=== PATIENT | female | born 1990 | race Caucasian/White ===

== ENCOUNTER 2016-11-13 08:54 | Emergency (ER) | payer OTHER ==
[~2016-11-13] VITALS: Ht 172.7 cm; Wt 100.0 kg
[~2016-11-13 08:54] MED LIST: ACET325T PO; ALBUAER3 INH; LEVO125T4 PO
[2016-11-13 08:56] VITALS: BP 177/120; PULSE 94; RESP 24; TEMP 97.4; O2SAT 99
[2016-11-13 09:57] VITALS: RESP 24; O2SAT 99
[2016-11-13] MEDS ORDERED: diphenhydrAMINE HCL 50 MG/ML VIAL IVP ONE (10:00)
[2016-11-13] MEDS ORDERED: SODIUM CHLORIDE 0.9% FLUSH 5 ML FLUSH IVF PRN (10:00)
[2016-11-13] MEDS ORDERED: HYDROmorphone HCL PF 1 MG/ML VIAL IVS ONE (10:00)
[2016-11-13] MEDS ORDERED: KETOROLAC TROMETHAMINE 30 MG/ML (IVP) VIAL IVP ONE (10:00)
[2016-11-13] MEDS ORDERED: PROCHLORPERAZINE INJ 10 MG/2 ML VIAL IVP ONE (10:00)
[2016-11-13 10:25] LABS: AUTOMATED NEUTROPHIL # 8.9 TH/MM3 (1.8-7.7); BASOPHIL % 0.4 % (0.0-2.0); EOSINOPHIL # 0.3 TH/MM3 (0-0.4); EOSINOPHIL % 2.5 % (0.0-4.0); HEMATOCRIT 44.4 % (35.0-46.0); HEMO FLAGS DIFF FINAL; LYMPH % 22.8 % (9.0-44.0); LYMPHOCYTE # 2.9 TH/MM3 (1.0-4.8); MEAN CELL VOLUME 79.7 FL (80.0-100.0); MEAN CORPUSCULAR HEMOGLOBIN 26.6 PG (27.0-34.0); MEAN CORPUSCULAR HGB CONC 33.4 % (32.0-36.0); MONO % 4.4 % (0.0-8.0); NEUT % 69.9 % (16.0-70.0); PLATELET COUNT 317 TH/MM3 (150-450); RED BLOOD COUNT 5.57 MIL/MM3 (4.00-5.30); RED CELL DISTRIBUTION WIDTH 15.5 % (11.6-17.2); WHITE BLOOD COUNT 12.7 TH/MM3 (4.0-11.0)
[2016-11-13 10:42] LABS: BICARBONATE 24.3 MEQ/L (21.0-32.0)
--- NOTE | 2016-11-13 10:50 | RADRPT ---
EXAM DATE/TIME: 11/13/2016 10:09 [place] COMPARISON: CT ABDOMEN & PELVIS W/O CONTRAST, June 10, 2015, 17:15. INDICATIONS : Flank pain. ORAL CONTRAST: No oral contrast ingested. RADIATION DOSE: 32.57 CTDIvol (mGy) MEDICAL HISTORY : Renal calculi. SURGICAL HISTORY : section. Appendectomy.Cholecystectomy. ENCOUNTER: Initial ACUITY: 1 day PAIN SCALE: 5/10 LOCATION: flank TECHNIQUE: Volumetric scanning of the abdomen and pelvis was performed. Using automated exposure control and ad justment of the mA and/or kV according to patient size, radiation dose was kept as low as reasonably achievable to obtain optimal diagnostic quality images. FINDINGS: Minimal bibasilar parenchymal changes are seen in the lung base cyst. The liver spleen and pancreas are unremarkable Right kidney: There are multiple small calcifications in the right kidney. There no calcification along expected c ourse of the right ureter. Left kidney: Multiple calcifications are seen in the left kidney all measuring less than 5 mm. There are no calci fication with the course of the left ureter. In the pelvis IUD is in place. No pelvic calcifications are identified. CONCLUSION: Multiple small nonobstructing bilateral renal stones. IUD in the uterus.. Rashard Powell MD FACR on November 13, 2016 at 10:47 Board Certified Radiologist. This report was verified electronically.
--- NOTE | 2016-11-13 11:40 | PD ---
HPI Chief Complaint: Complaint Time Seen by Provider: 09:48 Travel History International Travel<30 days: No Contact w/Intl Traveler<30days: No Traveled to known affect area: No History of Present Illness HPI Patient is a 25-year-old female with history of ureterolithiasis requiring lithotripsy and stent placement who presents emergency department with complaint of flank pain. Patient states that she was normal up until approximately 2 hours prior to arrival when she developed right sided flank pain that radiates to the right lower quadrant of the abdomen. Associated small -volume frequent urination. No hematuria or dysuria. This is similar to patient's previous episodes of ureterolithiasis. She has had a previous appendectomy. Notes endometriosis but no history of ovarian pathology. PFSH Past Medical History ADD: Yes Anemia: Yes Depression: Yes Cancer: No Cardiovascular Problems: No Diabetes: No Diminished Hearing: No Gastrointestinal Disorders: Yes (GALL STONES) Genitourinary: Yes (CHRONIC UTI'S) Hepatitis: No Hiatal Hernia: No Hypertension: No Kidney Stones: Yes Medical other: Yes (ANEMIA, RESTLESS LEG SYND.) Reproductive: Yes (ENDOMETRIOSIS) Respiratory: No Immunizations Current: Yes Migraines: Yes Thyroid Disease: Yes Influenza Vaccination: Yes ?: Not : 1 Para: 0 Dilation and Curettage (D&C): Yes Past Surgical History Abdominal Surgery: Yes (LAP TEE) Appendectomy: Yes Section: Yes Cholecystectomy: Yes Ear Surgery: Yes (PE TUBES) Genitourinary Surgery: Yes (ESWL, STONE RETRIEVAL) Gynecologic Surgery: Yes (FOR ENDOMETRIOSIS X 9) Pacemaker: No Tonsillectomy: Yes Other Surgery: Yes Social History Alcohol Use: Yes (COUPLE DRINKS PER MONTH) Tobacco Use: No Substance Use: No Allergies-Medications (Allergen,Severity, Reaction): Coded Allergies: Zofran (Unverified Allergy, Severe, Hives, 09/27/16) Keflex (Verified Allergy, Intermediate, RASH, 09/27/16) Morphine (Verified Adverse Reaction, Intermediate, REDNESS AT IVP SITE, ) Reported Meds & Prescriptions Reported Meds & Active Scripts Active Proair Hfa 8.5 GM Inh (Albuterol Sulfate) 90 Mcg/Act Aer 2 Puff INH Q6H PRN 108 mcg/actuation Reported Acetaminophen 325 Mg Tab 650 Mg PO Q4-6H PRN Levothyroxine (Levothyroxine Sodium) 125 Mcg Tab 125 Mcg PO DAILY Review of Systems Except as stated in HPI: all other systems reviewed are Neg Physical Exam Narrative GENERAL: Uncomfortable female in mild distress, having difficulty finding a comfortable position in bed SKIN: Warm and dry. HEAD: Normocephalic. EYES: No scleral icterus. No injection or drainage. ENT: Mucous membranes pink and moist. NECK: Supple CARDIOVASCULAR: Regular rate and rhythm. No murmur appreciated. RESPIRATORY: No accessory muscle use. Clear to auscultation. Breath sounds equal bilaterally. GASTROINTESTINAL: Abdomen soft, non-tender, nondistended. Right sided flank pain radiating to the right abdomen but not reproducible with palpation MUSCULOSKELETAL: Normal gait NEUROLOGICAL: Awake and alert. Normal speech. PSYCHIATRIC: Appropriate mood and affect; insight and judgment normal. Data Data Last Documented VS Vital Signs Date Time Temp Pulse Resp B/P Pulse Ox O2 Delivery O2 Flow Rate FiO2 11/13/16 09:57 24 99 Room Air 11/13/16 09:38 101 11/13/16 08:56 97.4 177/120 Orders Urinalysis - C+S If Indicated (11/13/16 09:32) Ed Urine Pregnancytest Poc (11/13/16 09:32) Iv Access Insert/Monitor (11/13/16 09:48) Ecg Monitoring (11/13/16 09:48) Oximetry (11/13/16 09:48) Sodium Chloride 0.9% Flush (Ns Flush) (11/13/16 10:00) Ketorolac Inj (Toradol Inj) (11/13/16 10:00) Hydromorphone Pf Inj (Dilaudid Pf Inj) (11/13/16 10:00) Prochlorperazine Inj (Compazine Inj) (11/13/16 10:00) Diphenhydramine Inj (Benadryl Inj) (11/13/16 10:00) Basic Metabolic Panel (Bmp) (11/13/16 09:57) Complete Blood Count With Diff (11/13/16 09:57) Ct Abd/Pel W/O Iv Contrast (11/13/16 09:57) Urine Culture (11/13/16 11:20) Labs Laboratory Tests Test 11/13/16 11/13/16 10:12 11:20 White Blood Count 12.7 TH/MM3 Red Blood Count 5.57 MIL/MM3 Hemoglobin 14.8 GM/DL Hematocrit 44.4 % Mean Corpuscular Volume 79.7 FL Mean Corpuscular Hemoglobin 26.6 PG Mean Corpuscular Hemoglobin 33.4 % Concent Red Cell Distribution Width 15.5 % Platelet Count 317 TH/MM3 Mean Platelet Volume 8.7 FL Neutrophils (%) (Auto) 69.9 % Lymphocytes (%) (Auto) 22.8 % Monocytes (%) (Auto) 4.4 % Eosinophils (%) (Auto) 2.5 % Basophils (%) (Auto) 0.4 % Neutrophils # (Auto) 8.9 TH/MM3 Lymphocytes # (Auto) 2.9 TH/MM3 Monocytes # (Auto) 0.6 TH/MM3 Eosinophils # (Auto) 0.3 TH/MM3 Basophils # (Auto) 0.0 TH/MM3 CBC Comment DIFF FINAL Differential Comment Sodium Level 137 MEQ/L Potassium Level 4.0 MEQ/L Chloride Level 105 MEQ/L Carbon Dioxide Level 24.3 MEQ/L Anion Gap 8 MEQ/L Blood Urea Nitrogen 14 MG/DL Creatinine 0.83 MG/DL Estimat Glomerular Filtration 82 ML/MIN Rate Random Glucose 84 MG/DL Calcium Level 8.9 MG/DL Urine Color YELLOW Urine Turbidity HAZY Urine pH 5.5 Urine Specific [place] 1.032 Urine Protein 30 mg/dL Urine Glucose (UA) NEG mg/dL Urine Ketones NEG mg/dL Urine Occult Blood TRACE Urine Nitrite NEG Urine Bilirubin NEG Urine Urobilinogen LESS THAN 2.0 MG/DL Urine Leukocyte Esterase SMALL Urine RBC 2 /hpf Urine WBC 3 /hpf Urine Squamous Epithelial 3 /hpf Cells Urine Bacteria RARE /hpf Urine Hyaline Casts 3 /lpf Urine Mucus MANY /lpf Microscopic Urinalysis Comment CATH-CULTURE IND MDM Medical Decision Making Medical Screen Exam Complete: Yes Emergency Medical Condition: Yes Medical Record Reviewed: Yes Differential Diagnosis 25-year-old female with history of ureterolithiasis requiring lithotripsy/stent placement here with 2 hours of right flank pain radiating to the right abdomen with urinary symptoms. Differential includes UTI, pyelonephritis, ureterolithiasis. Her abdominal examination itself is benign making hepatobiliary or peritoneal pathology unlikely. Narrative Course Knight placed on monitor, IV established and blood obtained. She was given Dilaudid, Toradol, Benadryl, Compazine. Urine test was negative. CBC , BMP notable for mild leukocytosis 12.7. CT abdomen and pelvis shows bilateral nonobstructing stones. Urinalysis showed unremarkable. Patient will be discharged home as she is feeling markedly improved. Possibly that she passed a stone. Diagnosis Primary Impression: Renal colic Referrals: Hai Daniel MD as needed Additional Instructions: Nausea, pain medications as needed. Follow-up with urology if symptoms persist and return to the ER for the warning signs discussed. Med/Other Pt SpecificInfo: Prescription(s) given Scripts Ondansetron Odt (Zofran Odt)8 Mg Tab8 Mg SL Q8H PRN (NAUSEA OR VOMITING) #6 TAB Ref 0 Prov:Chhaya Lucas MD 11/13/16 Hydrocodone-Acetaminophen ([place])5-325 mg Tab1-2 Tab PO Q6H PRN (PAIN) #15 TAB Ref 0 Prov:Chhaya Lucas MD 11/13/16 Disposition: 01 DISCHARGE HOME Condition: Stable Chhaya Lucas MD Nov 13, 2016 11:40
[2016-11-13 12:04] LABS: BACTERIA, URINE RARE /hpf; BLOOD, URINE TRACE (NEG); COMMENT (UR) CATH-CULTURE IND; CULTURE IF INDICATED CATH CULTURE IND; GLUCOSE,URINE NEG (NEG); HYALINE CAST, URINE 3 /lpf (RARE); KETONE, URINE NEG (NEG); MUCUS URINE MANY /lpf (OCC); NITRITE,URINE NEG (NEG); PH, URINE 5.5 (5.0-8.5); SQUAMOUS EPITHELIAL CELL URINE 3 /hpf (0-5); URINE COLOR YELLOW (YELLW/STRAW)
[2016-11-13] MEDS ORDERED: NORC5TAB PO (12:41)
[2016-11-13] MEDS ORDERED: ZOFR8TAB4 SL (12:41)
[2016-11-13] MEDS ORDERED: PROM25TA5 PO (13:05)
== END 2016-11-13 12:51 | disposition home or self-care (01) ==
LOC: NEPE 08:54
DX: N23 Unspecified renal colic (principal); Z87.442 Personal history of urinary calculi; E07.9 Disorder of thyroid, unspecified
CPT/HCPCS: 74176; 80048; 81001; 84703; 85025; 87086; 96374; 96375; 99284; J0780; J1170; J1200; J1885

== ENCOUNTER 2016-12-09 21:44 | Emergency (ER) | payer OTHER ==
[~2016-12-09] VITALS: Ht 172.7 cm; Wt 114.1 kg
[~2016-12-09 21:44] MED LIST changes: +NORC5TAB PO; +PROM25TA5 PO
[2016-12-09 21:53] VITALS: BP 187/132; PULSE 101; RESP 22; TEMP 97.9; O2SAT 96
[2016-12-09 22:13] LABS: BLOOD, URINE TRACE (NEG); GLUCOSE,URINE NEG (NEG); KETONE, URINE NEG (NEG); NITRITE,URINE NEG (NEG)
[2016-12-09 22:18] LABS: URINE COLOR YELLOW (YELLW/STRAW)
[2016-12-09 22:19] LABS: BACTERIA, URINE MANY /hpf; COMMENT (UR) CULTURE INDICATED; CULTURE IF INDICATED CULTURE INDICATED; RBC, URINE 0-3 /hpf (0-3); SQUAMOUS EPITHELIAL CELL URINE > 8 /hpf (0-5)
--- NOTE | 2016-12-09 22:44 | PD ---
HPI Chief Complaint: Flank/Kidney Pain Time Seen by Provider: 22:29 Travel History International Travel<30 days: No Contact w/Intl Traveler<30days: No Traveled to known affect area: No History of Present Illness HPI 25yo F with PMH of nephrolithiasis presents to the ED with c/o right flank pain radiating to right abdomen for 1.5 hours. States it feels like her kidney stones but she did not take anything for pain. States she feels nauseous but always nauseous when she is in pain. Denies any fever, chest pain, sob, vomiting, urinary complaints, vaginal bleeding or discharge. Pt was seen here for the same complaint on 11/13/16 and had urine culture that showed contamination as well as CTa/p that showed bilateral nonobstructing renal stones / PFSH Past Medical History ADD: Yes Anemia: Yes Depression: Yes Cancer: No Cardiovascular Problems: No Diabetes: No Diminished Hearing: No Gastrointestinal Disorders: Yes (GALL STONES) Genitourinary: Yes (CHRONIC UTI'S) Hepatitis: No Hiatal Hernia: No Hypertension: No Kidney Stones: Yes Medical other: Yes (ANEMIA, RESTLESS LEG SYND.) Reproductive: Yes (ENDOMETRIOSIS) Respiratory: No Immunizations Current: Yes Migraines: Yes Thyroid Disease: Yes Influenza Vaccination: Yes ?: Not LMP: 11/21/16 : 1 Para: 1 Ovarian Cysts: Yes Dilation and Curettage (D&C): Yes Past Surgical History Abdominal Surgery: Yes (LAP TEE) Appendectomy: Yes Section: Yes (2010) Cholecystectomy: Yes Ear Surgery: Yes (PE TUBES) Genitourinary Surgery: Yes (ESWL, STONE RETRIEVAL) Gynecologic Surgery: Yes (FOR ENDOMETRIOSIS X 9) Pacemaker: No Tonsillectomy: Yes Other Surgery: Yes Social History Alcohol Use: Yes (COUPLE DRINKS PER MONTH) Tobacco Use: No Substance Use: No Allergies-Medications (Allergen,Severity, Reaction): Coded Allergies: Zofran (Unverified Allergy, Severe, Hives, 12/09/16) Keflex (Verified Allergy, Intermediate, RASH, 12/09/16) Morphine (Verified Adverse Reaction, Intermediate, REDNESS AT IVP SITE, 12/09/16) Reported Meds & Prescriptions Reported Meds & Active Scripts Active Reported Levothyroxine (Levothyroxine Sodium) 125 Mcg Tab 125 Mcg PO DAILY Review of Systems Except as stated in HPI: all other systems reviewed are Neg Physical Exam Narrative GENERAL: 25yo F in mild distress. SKIN: Warm and dry. HEAD: Atraumatic. Normocephalic. CARDIOVASCULAR: Regular rate and rhythm. No murmur appreciated. RESPIRATORY: No accessory muscle use. Clear to auscultation. Breath sounds equal bilaterally. GASTROINTESTINAL: Abdomen soft, non-tender, nondistended. No rebound tenderness or guarding. Pt states there is no pain when I palpate. BACK: No CVA tenderness bilaterally. No midline thoracic or lumbar tenderness. MUSCULOSKELETAL: No obvious deformities. No clubbing. No cyanosis. No edema. NEUROLOGICAL: Awake and alert. No obvious cranial nerve deficits. Motor grossly within normal limits. Normal speech. PSYCHIATRIC: Appropriate mood and affect; insight and judgment normal. Data Data Last Documented VS Vital Signs Date Time Temp Pulse Resp B/P Pulse Ox O2 Delivery O2 Flow Rate FiO2 12/09/16 22:56 80 18 149/98 98 Room Air 12/09/16 21:53 97.9 Orders Urinalysis - C+S If Indicated (12/09/16 22:02) Ed Urine Pregnancytest Poc (12/09/16 22:02) Urine Culture (12/09/16 22:06) Complete Blood Count With Diff (12/09/16 22:34) Comprehensive Metabolic Panel (12/09/16 22:34) Ketorolac Inj (Toradol Inj) (12/09/16 22:45) Metoclopramide Inj (Reglan Inj) (12/09/16 22:45) Sodium Chlor 0.9% 1000 Ml Inj (Ns 1000 M (12/09/16 22:45) Ed Poc Ultrasound (12/09/16 ) Ed Poc Ultrasound (12/09/16 ) Hydromorphone Pf Inj (Dilaudid Pf Inj) (12/09/16 23:30) Labs Laboratory Tests Test 12/09/16 12/09/16 22:06 22:40 Urine Color YELLOW Urine Turbidity SLIGHT Urine pH 6.0 Urine Specific [place] GREATER THAN 1.035 Urine Protein 30 mg/dL Urine Glucose (UA) NEG mg/dL Urine Ketones NEG mg/dL Urine Occult Blood TRACE Urine Nitrite NEG Urine Bilirubin NEG Urine Leukocyte Esterase NEG Urine RBC 0-3 /hpf Urine WBC 3-5 /hpf Urine Squamous Epithelial > 8 /hpf Cells Urine Bacteria MANY /hpf Microscopic Urinalysis Comment CULTURE INDICATED White Blood Count 10.7 TH/MM3 Red Blood Count 4.89 MIL/MM3 Hemoglobin 13.2 GM/DL Hematocrit 38.9 % Mean Corpuscular Volume 79.5 FL Mean Corpuscular Hemoglobin 26.9 PG Mean Corpuscular Hemoglobin 33.9 % Concent Red Cell Distribution Width 14.5 % Platelet Count 312 TH/MM3 Mean Platelet Volume 8.3 FL Neutrophils (%) (Auto) 61.9 % Lymphocytes (%) (Auto) 30.4 % Monocytes (%) (Auto) 5.0 % Eosinophils (%) (Auto) 2.2 % Basophils (%) (Auto) 0.5 % Neutrophils # (Auto) 6.6 TH/MM3 Lymphocytes # (Auto) 3.3 TH/MM3 Monocytes # (Auto) 0.5 TH/MM3 Eosinophils # (Auto) 0.2 TH/MM3 Basophils # (Auto) 0.1 TH/MM3 CBC Comment DIFF FINAL Differential Comment Sodium Level 141 MEQ/L Potassium Level 3.4 MEQ/L Chloride Level 107 MEQ/L Carbon Dioxide Level 24.2 MEQ/L Anion Gap 10 MEQ/L Blood Urea Nitrogen 14 MG/DL Creatinine 0.82 MG/DL Estimat Glomerular Filtration 84 ML/MIN Rate Random Glucose 87 MG/DL Calcium Level 8.5 MG/DL Total Bilirubin 0.6 MG/DL Aspartate Amino Transf 14 U/L (AST/SGOT) Alanine Aminotransferase 24 U/L (ALT/SGPT) Alkaline Phosphatase 66 U/L Total Protein 7.4 GM/DL Albumin 3.5 GM/DL MDM Medical Decision Making Medical Screen Exam Complete: Yes Emergency Medical Condition: Yes Interpretation(s) Laboratory Tests Test 12/09/16 12/09/16 22:06 22:40 Urine Color YELLOW (YELLW/STRAW) Urine Turbidity SLIGHT (CLEAR) Urine pH 6.0 (5.0-8.5) Urine Specific [place] GREATER THAN 1.035 (1.002-1.035) Urine Protein 30 mg/dL (NEG-TRACE) Urine Glucose (UA) NEG mg/dL (NEG) Urine Ketones NEG mg/dL (NEG) Urine Occult Blood TRACE (NEG) Urine Nitrite NEG (NEG) Urine Bilirubin NEG (NEG) Urine Leukocyte Esterase NEG (NEG) Urine RBC 0-3 /hpf (0-3) Urine WBC 3-5 /hpf (0-5) Urine Squamous Epithelial > 8 /hpf (0-5) Cells Urine Bacteria MANY /hpf (NONE) Microscopic Urinalysis Comment CULTURE INDICATED White Blood Count 10.7 TH/MM3 (4.0-11.0) Red Blood Count 4.89 MIL/MM3 (4.00-5.30) Hemoglobin 13.2 GM/DL (11.6-15.3) Hematocrit 38.9 % (35.0-46.0) Mean Corpuscular Volume 79.5 FL (80.0-100.0) Mean Corpuscular Hemoglobin 26.9 PG (27.0-34.0) Mean Corpuscular Hemoglobin 33.9 % Concent (32.0-36.0) Red Cell Distribution Width 14.5 % (11.6-17.2) Platelet Count 312 TH/MM3 (150-450) Mean Platelet Volume 8.3 FL (7.0-11.0) Neutrophils (%) (Auto) 61.9 % (16.0-70.0) Lymphocytes (%) (Auto) 30.4 % (9.0-44.0) Monocytes (%) (Auto) 5.0 % (0.0-8.0) Eosinophils (%) (Auto) 2.2 % (0.0-4.0) Basophils (%) (Auto) 0.5 % (0.0-2.0) Neutrophils # (Auto) 6.6 TH/MM3 (1.8-7.7) Lymphocytes # (Auto) 3.3 TH/MM3 (1.0-4.8) Monocytes # (Auto) 0.5 TH/MM3 (0-0.9) Eosinophils # (Auto) 0.2 TH/MM3 (0-0.4) Basophils # (Auto) 0.1 TH/MM3 (0-0.2) CBC Comment DIFF FINAL Differential Comment Sodium Level 141 MEQ/L (136-145) Potassium Level 3.4 MEQ/L (3.5-5.1) Chloride Level 107 MEQ/L (98-107) Carbon Dioxide Level 24.2 MEQ/L (21.0-32.0) Anion Gap 10 MEQ/L (5-15) Blood Urea Nitrogen 14 MG/DL (7-18) Creatinine 0.82 MG/DL (0.50-1.00) Estimat Glomerular Filtration 84 ML/MIN (>89) Rate Random Glucose 87 MG/DL (74-106) Calcium Level 8.5 MG/DL (8.5-10.1) Total Bilirubin 0.6 MG/DL (0.2-1.0) Aspartate Amino Transf 14 U/L (15-37) (AST/SGOT) Alanine Aminotransferase 24 U/L (10-53) (ALT/SGPT) Alkaline Phosphatase 66 U/L (45-117) Total Protein 7.4 GM/DL (6.4-8.2) Albumin 3.5 GM/DL (3.4-5.0) Differential Diagnosis Nephrolithiasis vs. pyelonephritis Narrative Course 25yo F with history of renal stones here with right flank pain. Pt has had 3 CTa/p since 2013 and all showed bilateral renal stones with no obstruction. Given that pt has just had a CTa/p last month, will do US bilateral kidneys to evaluate for hydronephrosis instead. UA showed contamination with >8 squamous epithelial cells and urine WBC of only 3-5. Trace occult blood. Pt was given dilaudid last month with relieve of pain and had no adverse allergic reaction to the medication. Pt's pain not improved with toradol 30mg IV so dilaudid 0.5mg IV given as well as reglan and IVF NS. Pt has not vomited here. US showed no hydronephrosis. Labs reviewed, no leukocytosis. Creatinine normal at 0.82. K: 3.4, can replace orally now. Repeat VS improved. Pt is well appearing and can follow up as outpatient. Return precautions given. Procedures Procedure Narrative Emergency department urinary tract ultrasound was performed with patient consent. Curvilinear probe was used in the transverse and sagittal views in the bilateral flank and suprapubic region without evidence of hydronephrosis or urinary retention. Diagnosis Primary Impression: Renal colic Patient Instructions: General Instructions Departure Forms: Tests/Procedures Additional Instructions: Please follow up with your PMD in 3-7 days. Return to the ED if symptoms worsen. Med/Other Pt SpecificInfo: Prescription(s) given Scripts Ibuprofen 600 Mg [id number] Mg PO Q8HR PRN (PAIN) #20 TAB Ref 0 Prov:PatrickPriscila 12/09/16 Disposition: 01 DISCHARGE HOME Condition: Stable Priscila Nguyen DO Dec 09, 2016 22:44
[2016-12-09] MEDS ORDERED: METOCLOPRAMIDE INJ 10 MG in SODIUM CHLORIDE 0.9% INJ 50 ML IV ONE (22:45)
[2016-12-09] MEDS ORDERED: KETOROLAC TROMETHAMINE 30 MG/ML (IVP) VIAL IV PUSH ONE (22:45)
[2016-12-09] MEDS ORDERED: SODIUM CHLOR 0.9% 1000 ML INJ 1,000 ML IV ONE (22:45)
[2016-12-09 22:47] LABS: AUTOMATED NEUTROPHIL # 6.6 TH/MM3 (1.8-7.7); BASOPHIL # 0.1 TH/MM3 (0-0.2); BASOPHIL % 0.5 % (0.0-2.0); EOSINOPHIL # 0.2 TH/MM3 (0-0.4); EOSINOPHIL % 2.2 % (0.0-4.0); HEMATOCRIT 38.9 % (35.0-46.0); HEMO FLAGS DIFF FINAL; LYMPH % 30.4 % (9.0-44.0); LYMPHOCYTE # 3.3 TH/MM3 (1.0-4.8); MEAN CELL VOLUME 79.5 FL (80.0-100.0); MEAN CORPUSCULAR HEMOGLOBIN 26.9 PG (27.0-34.0); MEAN CORPUSCULAR HGB CONC 33.9 % (32.0-36.0); NEUT % 61.9 % (16.0-70.0); PLATELET COUNT 312 TH/MM3 (150-450); RED BLOOD COUNT 4.89 MIL/MM3 (4.00-5.30); RED CELL DISTRIBUTION WIDTH 14.5 % (11.6-17.2); WHITE BLOOD COUNT 10.7 TH/MM3 (4.0-11.0)
[2016-12-09 22:53] LABS: CHLORIDE 107 MEQ/L (98-107); POTASSIUM 3.4 MEQ/L (3.5-5.1); SODIUM (NA) 141 MEQ/L (136-145)
[2016-12-09 22:56] VITALS: BP 149/98; PULSE 80; RESP 18; O2SAT 98
[2016-12-09 22:57] LABS: ANION GAP 10 MEQ/L (5-15); BICARBONATE 24.2 MEQ/L (21.0-32.0); BLOOD UREA NITROGEN 14 MG/DL (7-18)
[2016-12-09 23:00] LABS: ALT (GPT) 24 U/L (10-53); AST (GOT) 14 U/L (15-37); GLOMERULAR FILTRATION RATE 84 ML/MIN (>89)
[2016-12-09 23:02] LABS: TOTAL BILIRUBIN ADULT 0.6 MG/DL (0.2-1.0)
[2016-12-09 23:03] LABS: ALKALINE PHOSPHATASE 66 U/L (45-117)
[2016-12-09] MEDS ORDERED: HYDROmorphone HCL PF 1 MG/ML VIAL IV PUSH ONE (23:30)
[2016-12-09] MEDS ORDERED: IBUP-232 PO (23:58)
[2016-12-10 00:15] VITALS: BP 124/67
== END 2016-12-10 00:17 | disposition home or self-care (01) ==
LOC: PHED 21:44
DX: N23 Unspecified renal colic (principal)
CPT/HCPCS: 80053; 81001; 84703; 85025; 87086; 96361; 96374; 96375; 99284; J1170; J1885; J2765; J7030

== ENCOUNTER 2017-01-31 20:20 | Emergency (ER) | payer OTHER ==
[~2017-01-31] VITALS: Ht 172.7 cm; Wt 112.7 kg
[~2017-01-31 20:20] MED LIST changes: -ACET325T PO; -ALBUAER3 INH; +IBUP-232 PO; -NORC5TAB PO; -PROM25TA5 PO
[2017-01-31 20:31] VITALS: BP 175/130; PULSE 101; RESP 20; TEMP 98; O2SAT 100
[2017-01-31 20:57] VITALS: BP 172/124; PULSE 95; RESP 18; TEMP 98; O2SAT 97
[2017-01-31] MEDS ORDERED: HYDROmorphone HCL PF 1 MG/ML VIAL IV PUSH ONE ×2 (21:00→22:30)
[2017-01-31] MEDS ORDERED: SODIUM CHLOR 0.9% 1000 ML INJ 1,000 ML IV SCH (21:00)
[2017-01-31] MEDS ORDERED: SODIUM CHLORIDE 0.9% FLUSH 10 ML FLUSH IVF PRN (21:00)
[2017-01-31] MEDS ORDERED: METOCLOPRAMIDE HCL 10 MG/2 ML VIAL IV PUSH ONE (21:00)
[2017-01-31 21:03] VITALS: RESP 18; O2SAT 97
--- NOTE | 2017-01-31 21:13 | PD ---
HPI Chief Complaint: Headache Time Seen by Provider: 20:53 Travel History International Travel<30 days: No Contact w/Intl Traveler<30days: No Traveled to known affect area: No History of Present Illness HPI 26-year-old female presents to the emergency department for complaint of headache since . Patient reports that beginning Tuesday evening she started having flulike symptoms with fever and nausea vomiting. Patient with persistent symptoms and finally was evaluated by her primary care on Tuesday and diagnosed with influenza. Patient is not placed on Tamiflu due to preceding duration of symptoms before being tested positive for the flu. Patient was sent home and encouraged to use [id number] medications for symptomatic relief. Patient states she no longer has fever and no longer has nausea vomiting but continues to have frontal headache. No prior history of sinus disease no sinus pressure drainage. Patient does not report sore throat. Patient denies neck stiffness or neck pain. No earache. No cough congestion wheezing shortness of breath chest pain abdominal pain flank pain dysuria frequency or urgency. No hematemesis no coffee-ground emesis no bilious emesis. Patient denies other concerns or complaints. Patient denies . Patient reports her child as well as her parents also have the flu. Patient reports she has history of migraines since typically are unilateral and associated with photophobia. Patient denies any unilateral symptoms and denies any photophobia. No upper or lower extremity numbness tingling or weakness or focality. No change in mentation no change in speech no difficulty with swallowing. Patient states she's used [id number] ibuprofen and Aleve Tylenol and Excedrin Migraine without symptomatic relief. Patient has attempted to remain hydrated taking oral hydration but has had vomiting several times over the weekend. Patient denies diarrhea. Patient rates pain 6/10 in intensity. Headache is not sudden onset thunderclap or worst ever but persistent. PFSH Past Medical History Narrative Medical ADD, anemia, depression, migraines, endometriosis, hypothyroidism, recurrent UTIs D&C cholecystectomy appendectomy multiple respiratory laparotomies for endometriosis occasional alcohol use no tobacco use nursing notes reviewed ADD: Yes Anemia: Yes Depression: Yes Cancer: No Cardiovascular Problems: No Diabetes: No Diminished Hearing: No Gastrointestinal Disorders: Yes (GALL STONES) Genitourinary: Yes (CHRONIC UTI'S) Hepatitis: No Hiatal Hernia: No Hypertension: No Kidney Stones: Yes Reproductive: Yes (ENDOMETRIOSIS) Respiratory: No Immunizations Current: Yes Migraines: Yes Thyroid Disease: Yes ?: Not LMP: 2 WEEKS AGO : 1 Para: 1 Ovarian Cysts: Yes Dilation and Curettage (D&C): Yes Past Surgical History Abdominal Surgery: Yes (LAP TEE) Appendectomy: Yes Section: Yes (2010) Cholecystectomy: Yes Ear Surgery: Yes (PE TUBES) Genitourinary Surgery: Yes (ESWL, STONE RETRIEVAL) Gynecologic Surgery: Yes (FOR ENDOMETRIOSIS X 9) Pacemaker: No Tonsillectomy: Yes Other Surgery: Yes Social History Alcohol Use: Yes (COUPLE DRINKS PER MONTH) Tobacco Use: No Substance Use: No Allergies-Medications (Allergen,Severity, Reaction): Coded Allergies: Zofran (Unverified Allergy, Severe, Hives, 01/31/17) Keflex (Verified Allergy, Intermediate, RASH, 01/31/17) Morphine (Verified Adverse Reaction, Intermediate, REDNESS AT IVP SITE, ) Reported Meds & Prescriptions Reported Meds & Active Scripts Active Phenergan (Promethazine HCl) 25 Mg Tab 25 Mg PO Q6H PRN Cipro (Ciprofloxacin HCl) 500 Mg Tab 500 Mg PO BID 7 Days Lortab (Hydrocodone-Acetaminophen) 5-325 Mg Tab 1 Tab PO Q6H PRN Clonidine (Clonidine HCl) 0.1 Mg Tab 0.1 Mg PO Q12HR PRN Reported Levothyroxine (Levothyroxine Sodium) 125 Mcg Tab 125 Mcg PO DAILY Review of Systems Except as stated in HPI: all other systems reviewed are Neg General / Constitutional: Positive: Fever, No: Chills HENT: Positive: Headaches, Congestion, No: Lightheadedness, Sore Throat, Neck Stiffness, Neck Pain, Masses, Earache Cardiovascular: No: Chest Pain or Discomfort Respiratory: No: Cough, Shortness of Breath Gastrointestinal: Positive: Nausea, Vomiting, No: Diarrhea, Abdominal Pain Genitourinary: Positive: Decreased Urinary Output, No: Dysuria, Flank Pain Musculoskeletal: Positive: Myalgias, Arthralgias Skin: No Rash Neurologic: Positive: Headache, No: Weakness, Dizziness, Syncope, Focal Abnormalities, Coordination Problem, Ataxia, Change in Mentation, Slurred Speech , Paresthesia, Sensory Disturbance Psychiatric: No: Anxiety, Depression Endocrine: No: Polyuria Hematologic/Lymphatic: No: Lymph Node Enlargement Physical Exam Narrative GENERAL: Well-developed well-nourished female in acute distress no respiratory distress SKIN: Warm and dry. HEAD: Atraumatic. Normocephalic. EYES: Pupils equal and round. No scleral icterus. No injection or drainage. No papilledema by funduscopic exam. ENT: No nasal bleeding or discharge. Mucous membranes pink and moist. No posterior pharyngeal edema erythema and exudative change. Bilateral tympanic membranes no loss of landmarks no erythema no fluid no perforation GCS 15. NECK: Trachea midline. No JVD. Supple no meningismus no nuchal rigidity no Kernig's and Brudzinski's. CARDIOVASCULAR: Regular rate and rhythm. RESPIRATORY: No accessory muscle use. Clear to auscultation. Breath sounds equal bilaterally. GASTROINTESTINAL: Abdomen soft, non-tender, nondistended. Hepatic and splenic margins not palpable. MUSCULOSKELETAL: Extremities without clubbing, cyanosis, or edema. No obvious deformities. NEUROLOGICAL: Awake and alert. No obvious cranial nerve deficits. Motor grossly within normal limits. Five out of 5 muscle strength in the arms and legs. Normal speech. PSYCHIATRIC: Appropriate mood and affect; insight and judgment normal. Data Data Last Documented VS Vital Signs Date Time Temp Pulse Resp B/P Pulse Ox O2 Delivery O2 Flow Rate FiO2 02/01/17 03:20 18 02/01/17 03:19 97 02/01/17 03:04 86 130/90 Room Air 01/31/17 20:57 98.0 Orders Complete Blood Count With Diff (01/31/17 20:53) Basic Metabolic Panel (Bmp) (01/31/17 20:53) Prothrombin Time / Inr (Pt) (01/31/17 20:53) Act Partial Throm Time (Ptt) (01/31/17 20:53) Ct Brain W/O Iv Contrast(Rout) (01/31/17 20:53) Ecg Monitoring (01/31/17 20:53) Iv Access Insert/Monitor (01/31/17 20:53) Oximetry (01/31/17 20:53) Sodium Chloride 0.9% Flush (Ns Flush) (01/31/17 21:00) Urinalysis - C+S If Indicated (01/31/17 20:53) Ed Urine Pregnancytest Poc (01/31/17 20:53) Sodium Chlor 0.9% 1000 Ml Inj (Ns 1000 M (01/31/17 21:00) Metoclopramide Inj (Reglan Inj) (01/31/17 21:00) Hydromorphone Pf Inj (Dilaudid Pf Inj) (01/31/17 21:00) Urine Culture (01/31/17 21:15) Hydromorphone Pf Inj (Dilaudid Pf Inj) (01/31/17 22:30) Clonidine (Catapres) (01/31/17 22:30) Ciprofloxacin (Cipro) (01/31/17 22:45) Potassium Chloride (Kcl) (01/31/17 23:45) Labetalol Inj (Trandate Inj) (02/01/17 01:45) Ketorolac Inj (Toradol Inj) (02/01/17 02:30) Labs Laboratory Tests Test 01/31/17 01/31/17 21:15 21:20 Urine Color YELLOW Urine Turbidity MOD Urine pH 7.0 Urine Specific [place] 1.022 Urine Protein TRACE mg/dL Urine Glucose (UA) NEG mg/dL Urine Ketones NEG mg/dL Urine Occult Blood SMALL Urine Nitrite NEG Urine Bilirubin NEG Urine Leukocyte Esterase TRACE Urine RBC 0-3 /hpf Urine WBC 6-8 /hpf Urine Squamous Epithelial > 8 /hpf Cells Urine Calcium Oxalate Crystals MANY /hpf Urine Bacteria MOD /hpf Urine Mucus MOD /lpf Microscopic Urinalysis Comment CULTURE INDICATED White Blood Count 8.9 TH/MM3 Red Blood Count 5.44 MIL/MM3 Hemoglobin 14.3 GM/DL Hematocrit 44.1 % Mean Corpuscular Volume 81.0 FL Mean Corpuscular Hemoglobin 26.3 PG Mean Corpuscular Hemoglobin 32.4 % Concent Red Cell Distribution Width 14.0 % Platelet Count 271 TH/MM3 Mean Platelet Volume 8.4 FL Neutrophils (%) (Auto) 60.7 % Lymphocytes (%) (Auto) 30.7 % Monocytes (%) (Auto) 6.4 % Eosinophils (%) (Auto) 1.9 % Basophils (%) (Auto) 0.3 % Neutrophils # (Auto) 5.4 TH/MM3 Lymphocytes # (Auto) 2.7 TH/MM3 Monocytes # (Auto) 0.6 TH/MM3 Eosinophils # (Auto) 0.2 TH/MM3 Basophils # (Auto) 0.0 TH/MM3 CBC Comment DIFF FINAL Differential Comment Prothrombin Time 10.3 SEC Prothromb Time International 0.9 RATIO Ratio Activated Partial 24.4 SEC Thromboplast Time Sodium Level 144 MEQ/L Potassium Level 3.1 MEQ/L Chloride Level 109 MEQ/L Carbon Dioxide Level 24.4 MEQ/L Anion Gap 11 MEQ/L Blood Urea Nitrogen 12 MG/DL Creatinine 0.69 MG/DL Estimat Glomerular Filtration 101 ML/MIN Rate Random Glucose 121 MG/DL Calcium Level 8.7 MG/DL MDM Medical Decision Making Medical Screen Exam Complete: Yes Emergency Medical Condition: Yes Medical Record Reviewed: Yes Interpretation(s) Last Impressions Head CT 01/31/172052 Signed Impressions: Service Date/Time: Tuesday, January 31, 2017 21:29 - CONCLUSION: No acute disease. Don Cary MD CBC & BMP Diagram 01/31/17 21:20 Vital Signs Date Time Temp Pulse Resp B/P Pulse Ox O2 Delivery O2 Flow Rate FiO2 01/31/17 22:15 83 18 171/112 98 Room Air 01/31/17 22:13 18 01/31/17 21:03 89 18 97 Room Air 01/31/17 21:03 18 97 Room Air 01/31/17 20:57 98.0 95 18 172/124 97 01/31/17 20:31 98.0 101 20 175/130 100 Differential Diagnosis Cephalgia, viral syndrome, viral meningitis, dehydration, UTI, sinusitis, new- onset/accelerated hypertension; unlikely encephalitis or SAH Narrative Course IV access obtained specimens collected and sent for resulting imaging studies ordered IV fluids administered patient noted to be quite hypertensive pain medication administered for symptom relief. LP discussed with patient and patient declines procedure CT brain noncontrast reveals no acute abnormality CBC with automated differential values in normal range; chemistries remarkable for hypokalemia; urinalysis is markedly abnormal with bacteriuria and pyuria; [id number] test is negative Patient administered additional pain medication due to blood pressure elevation and discussed in detail elevated blood pressure and plan to administer antihypertensive Patient given Cipro 500 mg by mouth for UTI Patient administered clonidine 0.1 mg by mouth for hypertension Patient clinically noting some improvement as blood pressure decreases regarding headache pain however the pressure not completely responsive to clonidine additional antihypertensive administered with labetalol Patient resting comfortably blood pressure has decreased to 130/90 headache pain has diminished to 1/10 in intensity patient is aware that she should be evaluated for hypertension and prescription will be provided for blood pressure management as needed. Patient is time appears stable for outpatient management with new diagnosis of hypertension. Patient also identified to have urinary tract infection will be discharged with prescription for oral antibiotic. Patient's potassium was replaced and encouraged to add potassium containing foods and beverages to dietary intake. Patient's questions answered to her satisfaction and is stable for outpatient management at this time. Diagnosis Primary Impression: Cephalgia Qualified Code: R51 - Acute nonintractable headache, unspecified headache type Additional Impressions: UTI (urinary tract infection) Qualified Code: N39.0 - Urinary tract infection without hematuria, site unspecified Dehydration Hypertension Hypokalemia Referrals: Primary Care Physician 1 day Patient Instructions: General Instructions Departure Forms: Tests/Procedures, Work Release Special Instructions: no work x 2 days Additional Instructions: Increase fluid hydration Complete course of antibiotic as prescribed Follow-up with primary care provider call office in a.m. to schedule follow-up appointment Take acetaminophen every 4 hours as needed for fever 100.4F or greater No work 2 days Return to the emergency department for pain fever vomiting or any concerns Med/Other Pt SpecificInfo: Prescription(s) given Scripts Promethazine (Phenergan)25 Mg Tab25 Mg PO Q6H PRN (Nausea/Vomiting) #10 TAB Ref 0 Prov:Mulu Encinas MD 02/01/17 Ciprofloxacin (Cipro)500 Mg Qxi645 Mg PO BID 7 Days Ref 0 Prov:Mulu Encinas MD 02/01/17 Hydrocodone-Acetaminophen (Lortab)5-325 Mg Tab1 Tab PO Q6H PRN (PAIN) #10 TAB Ref 0 Prov:Mulu Encinas MD 02/01/17 Clonidine 0.1 Mg Tab0.1 Mg PO Q12HR PRN (SBP>160, DBP>90) #6 TAB Ref 0 Prov:Mulu Encinas MD 02/01/17 Disposition: 01 DISCHARGE HOME Condition: Stable Mulu Encinas MD Jan 31, 2017 21:13
[2017-01-31 21:37] LABS: AUTOMATED NEUTROPHIL # 5.4 TH/MM3 (1.8-7.7); BASOPHIL % 0.3 % (0.0-2.0); EOSINOPHIL # 0.2 TH/MM3 (0-0.4); EOSINOPHIL % 1.9 % (0.0-4.0); HEMATOCRIT 44.1 % (35.0-46.0); HEMO FLAGS DIFF FINAL; LYMPH % 30.7 % (9.0-44.0); LYMPHOCYTE # 2.7 TH/MM3 (1.0-4.8); MEAN CORPUSCULAR HEMOGLOBIN 26.3 PG (27.0-34.0); MEAN CORPUSCULAR HGB CONC 32.4 % (32.0-36.0); MONO % 6.4 % (0.0-8.0); NEUT % 60.7 % (16.0-70.0); PLATELET COUNT 271 TH/MM3 (150-450); RED BLOOD COUNT 5.44 MIL/MM3 (4.00-5.30); WHITE BLOOD COUNT 8.9 TH/MM3 (4.0-11.0)
[2017-01-31 21:45] LABS: POTASSIUM 3.1 MEQ/L (3.5-5.1)
[2017-01-31 21:46] LABS: BLOOD, URINE SMALL (NEG); GLUCOSE,URINE NEG (NEG); KETONE, URINE NEG (NEG); NITRITE,URINE NEG (NEG)
--- NOTE | 2017-01-31 21:47 | RADHPO ---
EXAM DATE/TIME: 01/31/2017 21:29 [facility] COMPARISON: No previous studies available for comparison. INDICATIONS : Cephalgia. RADIATION DOSE: 53.90 CTDIvol (mGy) MEDICAL HISTORY : None SURGICAL HISTORY : Tonsillectomy. ENCOUNTER: Initial ACUITY: 1 day PAIN SCALE: 3/10 LOCATION: cranial TECHNIQUE: Multiple contiguous axial images were obtained of the head. Using automated exposure control and adj ustment of the mA and/or kV according to patient size, radiation dose was kept as low as reasonably a chievable to obtain optimal diagnostic quality images. FINDINGS: CEREBRUM: The ventricles are normal for age. No evidence of midline shift, mass lesion, hemorrhage or acute in farction. No extra-axial fluid collections are seen. POSTERIOR FOSSA: The cerebellum and brainstem are intact. The 4th ventricle is midline. The cerebellopontine angle i s unremarkable. EXTRACRANIAL: The visualized portion of the orbits is intact. SKULL: The calvaria is intact. No evidence of skull fracture. CONCLUSION: No acute disease. Don Cary MD on January 31, 2017 at 21:45 Board Certified Radiologist. This report was verified electronically.
[2017-01-31 21:48] LABS: APTT (PATIENT) 24.4 SEC (24.3-30.1); INTERNATIONAL NORMALIZED RATIO 0.9 RATIO; PROTHROMBIN TIME - PATIENT 10.3 SEC (9.8-11.6)
[2017-01-31 21:49] LABS: BICARBONATE 24.4 MEQ/L (21.0-32.0)
[2017-01-31 22:01] LABS: URINE COLOR YELLOW (YELLW/STRAW)
[2017-01-31 22:02] LABS: MUCUS URINE MOD /lpf (OCC); SQUAMOUS EPITHELIAL CELL URINE > 8 /hpf (0-5)
[2017-01-31 22:03] LABS: BACTERIA, URINE MOD /hpf; CALCIUM OXALATE CRYSTALS,URINE MANY /hpf; COMMENT (UR) CULTURE INDICATED; CULTURE IF INDICATED CULTURE INDICATED; RBC, URINE 0-3 /hpf (0-3)
[2017-01-31 22:15] VITALS: BP 171/112; PULSE 83; RESP 18; O2SAT 98
[2017-01-31] MEDS ORDERED: cloNIDine HCL 0.1 MG TAB PO ONE (22:30)
[2017-01-31] MEDS ORDERED: CIPROFLOXACIN 500 MG TAB PO ONE (22:45)
[2017-01-31 23:21] VITALS: BP 167/100; PULSE 84; RESP 18; O2SAT 97
[2017-01-31] MEDS ORDERED: POTASSIUM CHLORIDE 20 MEQ CONTROLLED RELEASE TAB PO ONE (23:45)
[2017-02-01 00:32] VITALS: BP 164/107; PULSE 88; RESP 18; O2SAT 98
[2017-02-01 01:32] VITALS: BP 160/106; PULSE 87; RESP 18; O2SAT 97
[2017-02-01] MEDS ORDERED: LABETALOL HCL 100 MG/20 ML VIAL IV PUSH ONE (01:45)
[2017-02-01 02:00] VITALS: BP 148/68; PULSE 90; RESP 18; O2SAT 98
[2017-02-01] MEDS ORDERED: KETOROLAC TROMETHAMINE 30 MG/ML (IVP) VIAL IV PUSH ONE (02:30)
[2017-02-01] MEDS ORDERED: CLON0.1T PO (03:03)
[2017-02-01] MEDS ORDERED: HYDR-3533 PO (03:03)
[2017-02-01] MEDS ORDERED: PROM25TA5 PO (03:03)
[2017-02-01] MEDS ORDERED: CIPR-9 PO (03:03)
[2017-02-01 03:04] VITALS: BP 130/90; PULSE 86; RESP 18; O2SAT 98
[2017-02-01 03:20] VITALS: RESP 18
== END 2017-02-01 03:21 | disposition home or self-care (01) ==
LOC: PHED 20:20
DX: R51 Headache (principal); N39.0 Urinary tract infection, site not specified; B96.89 Other specified bacterial agents as the cause of diseases classified elsewhere; E86.0 Dehydration; I10 Essential (primary) hypertension; E87.6 Hypokalemia; E03.9 Hypothyroidism, unspecified; Z79.899 Other long term (current) drug therapy
CPT/HCPCS: 70450; 80048; 81001; 84703; 85025; 85610; 85730; 87086; 96361; 96374; 96375; 96376; 99284; J1170; J1885; J2765; J7030

== ENCOUNTER 2017-06-21 07:53 | Emergency (ER) | payer OTHER ==
[~2017-06-21] VITALS: Ht 172.7 cm; Wt 116.0 kg
[~2017-06-21 07:53] MED LIST changes: +CIPR-9 PO; +CLON0.1T PO; +HYDR-3533 PO; -IBUP-232 PO; +PROM25TA5 PO
[2017-06-21 07:58] VITALS: BP 168/120; PULSE 100; RESP 18; TEMP 98.5; O2SAT 99
[2017-06-21] MEDS ORDERED: SODIUM CHLOR 0.9% 1000 ML INJ 1,000 ML IV SCH (08:05)
[2017-06-21 08:10] VITALS: O2SAT 99
--- NOTE | 2017-06-21 08:12 | PD ---
HPI Chief Complaint: Flank/Kidney Pain Time Seen by Provider: 08:05 Travel History International Travel<30 days: No Contact w/Intl Traveler<30days: No Traveled to known affect area: No History of Present Illness HPI 26-year-old female complains of right flank pain. Patient has history kidney stones in the past. Patient has been seen by Dr. Sellers, urologist. Patient states that she had lithotripsy in the past for kidney stone. Patient states that the right flank pain started about an hour prior coming to the emergency room. Patient states the pain localized to right flank area. Patient states the pain is severe sharp pain. On a scale of 1-10 the pain is a 10. Patient states that she had nausea vomiting with the pain. Patient denies any dysuria or frequency. Patient denies any fever chills. Patient states that she has history endometriosis also. PFSH Past Medical History ADD: Yes Anemia: Yes Depression: Yes Cancer: No Cardiovascular Problems: No Diabetes: No Diminished Hearing: No Gastrointestinal Disorders: Yes (GALL STONES) Genitourinary: Yes (CHRONIC UTI'S) Hepatitis: No Hiatal Hernia: No Hypertension: No Kidney Stones: Yes Medical other: Yes (ANEMIA, RESTLESS LEG SYND.) Reproductive: Yes (ENDOMETRIOSIS) Respiratory: No Immunizations Current: Yes Migraines: Yes Thyroid Disease: Yes ?: Not : 1 Para: 1 Ovarian Cysts: Yes Dilation and Curettage (D&C): Yes Past Surgical History Abdominal Surgery: Yes (LAP TEE) Appendectomy: Yes Section: Yes (2010) Cholecystectomy: Yes Ear Surgery: Yes (PE TUBES) Genitourinary Surgery: Yes (ESWL, STONE RETRIEVAL) Gynecologic Surgery: Yes (FOR ENDOMETRIOSIS X 11) Pacemaker: No Tonsillectomy: Yes Other Surgery: Yes Social History Alcohol Use: Yes (COUPLE DRINKS PER MONTH) Tobacco Use: No Substance Use: No Allergies-Medications (Allergen,Severity, Reaction): Coded Allergies: Zofran (Unverified Allergy, Severe, Hives, 06/21/17) Keflex (Verified Allergy, Intermediate, RASH, 06/21/17) Morphine (Verified Adverse Reaction, Intermediate, REDNESS AT IVP SITE, ) Reported Meds & Prescriptions Reported Meds & Active Scripts Active Phenergan (Promethazine HCl) 25 Mg Tablet 25 Mg PO Q6H PRN Ultram (Tramadol HCl) 50 Mg Tab 50 Mg PO Q6H PRN Mobic (Meloxicam) 15 Mg Tab 15 Mg PO DAILY Reported Levothyroxine (Levothyroxine Sodium) 125 Mcg Tab 125 Mcg PO DAILY Review of Systems General / Constitutional: No: Fever Eyes: No: Visual changes HENT: No: Headaches Cardiovascular: No: Chest Pain or Discomfort Respiratory: No: Shortness of Breath Gastrointestinal: Positive: Nausea, Vomiting, Abdominal Pain Genitourinary: No: Dysuria Musculoskeletal: No: Pain Skin: No Rash Neurologic: No: Weakness Psychiatric: No: Depression Endocrine: No: Polydipsia Hematologic/Lymphatic: No: Easy Bruising Physical Exam Narrative GENERAL: Well-nourished, well-developed patient. SKIN: Focused skin assessment warm/dry. HEAD: Normocephalic. EYES: No scleral icterus. No injection or drainage. NECK: Supple, trachea midline. No JVD or lymphadenopathy. CARDIOVASCULAR: Regular rate and rhythm without murmurs, gallops, or rubs. RESPIRATORY: Breath sounds equal bilaterally. No accessory muscle use. GASTROINTESTINAL: Abdomen soft, non-tender, nondistended. MUSCULOSKELETAL: No cyanosis, or edema. BACK: Patient has moderate tenderness on palpation right flank area, without obvious deformity. Neurologic exam normal. Data Data Last Documented VS Vital Signs Date Time Temp Pulse Resp B/P Pulse Ox O2 Delivery O2 Flow Rate FiO2 06/21/17 08:10 99 Room Air 06/21/17 07:58 98.5 100 18 168/120 Orders Complete Blood Count With Diff (06/21/17 08:05) Comprehensive Metabolic Panel (06/21/17 08:05) Prothrombin Time / Inr (Pt) (06/21/17 08:05) Act Partial Throm Time (Ptt) (06/21/17 08:05) Urinalysis - C+S If Indicated (06/21/17 08:05) Ct Abd/Pel W/O Iv Contrast (06/21/17 08:05) Iv Access Insert/Monitor (06/21/17 08:05) Ecg Monitoring (06/21/17 08:05) Oximetry (06/21/17 08:05) Sodium Chlor 0.9% 1000 Ml Inj (Ns 1000 M (06/21/17 08:05) Ketorolac Inj (Toradol Inj) (06/21/17 08:15) Hydromorphone Pf Inj (Dilaudid Pf Inj) (06/21/17 08:15) Metoclopramide Inj (Reglan Inj) (06/21/17 08:15) Diphenhydramine Inj (Benadryl Inj) (06/21/17 08:15) Urine Culture (06/21/17 09:55) Labs Laboratory Tests Test 06/21/17 06/21/17 08:18 09:55 White Blood Count 10.3 TH/MM3 Red Blood Count 5.43 MIL/MM3 Hemoglobin 14.2 GM/DL Hematocrit 43.7 % Mean Corpuscular Volume 80.4 FL Mean Corpuscular Hemoglobin 26.2 PG Mean Corpuscular Hemoglobin 32.6 % Concent Red Cell Distribution Width 14.2 % Platelet Count 311 TH/MM3 Mean Platelet Volume 9.1 FL Neutrophils (%) (Auto) 73.8 % Lymphocytes (%) (Auto) 18.3 % Monocytes (%) (Auto) 2.6 % Eosinophils (%) (Auto) 3.6 % Basophils (%) (Auto) 1.7 % Neutrophils # (Auto) 7.5 TH/MM3 Lymphocytes # (Auto) 1.9 TH/MM3 Monocytes # (Auto) 0.3 TH/MM3 Eosinophils # (Auto) 0.4 TH/MM3 Basophils # (Auto) 0.2 TH/MM3 CBC Comment DIFF FINAL Differential Comment Prothrombin Time 10.4 SEC Prothromb Time International 0.9 RATIO Ratio Activated Partial 25.7 SEC Thromboplast Time Sodium Level 138 MEQ/L Potassium Level 3.8 MEQ/L Chloride Level 108 MEQ/L Carbon Dioxide Level 21.6 MEQ/L Anion Gap 8 MEQ/L Blood Urea Nitrogen 13 MG/DL Creatinine 0.87 MG/DL Estimat Glomerular Filtration 78 ML/MIN Rate Random Glucose 175 MG/DL Calcium Level 8.6 MG/DL Total Bilirubin 0.3 MG/DL Aspartate Amino Transf 31 U/L (AST/SGOT) Alanine Aminotransferase 33 U/L (ALT/SGPT) Alkaline Phosphatase 71 U/L Total Protein 7.2 GM/DL Albumin 3.1 GM/DL Urine Collection Type CLEAN CATCH Urine Color YELLOW Urine Turbidity SLIGHT Urine pH 6.0 Urine Specific [place] 1.018 Urine Protein NEG mg/dL Urine Glucose (UA) NEG mg/dL Urine Ketones NEG mg/dL Urine Occult Blood TRACE Urine Nitrite NEG Urine Bilirubin NEG Urine Leukocyte Esterase TRACE Urine RBC 0-3 /hpf Urine WBC 3-5 /hpf Urine Squamous Epithelial 0-5 /hpf Cells Urine Bacteria MANY /hpf Microscopic Urinalysis Comment CULTURE INDICATED Urine Collection Time 09:55 [facility] Medical Decision Making Medical Screen Exam Complete: Yes Emergency Medical Condition: Yes Interpretation(s) Last Impressions Abdomen/Pelvis CT 06/21/17 0805 Signed Impressions: Service Date/Time: Wednesday, June 21, 2017 08:42 - CONCLUSION: 1. Multiple nonobstructing renal stones seen bilaterally been maneuvers on the right. 2. IUD. Christos Reyes MD Differential Diagnosis Differential diagnosis including nephrolithiasis, pyelonephritis, musculoskeletal, colitis, cholecystitis. Narrative Course 26-year-old female with right flank pain. History kidney stone. Normal saline solution 1 L IV bolus. Dilaudid 1 mg IV. Toradol 30 mg IV. Reglan 10 mg IV. Benadryl 50 mg IV. Diagnosis Primary Impression: Nephrolithiasis Additional Impression: UTI (urinary tract infection) Qualified Code: N30.00 - Acute cystitis without hematuria Patient Instructions: General Instructions Additional Instructions: Encourage by mouth fluid. Follow-up with urologist. Return if persistent problem or worse. Return if intractable pain, persistent fever, persistent vomiting. Med/Other Pt SpecificInfo: Prescription(s) given Scripts Sulfamethoxazole-Trimethoprim (Bactrim DS)800-160 Mg Tab1 Tab PO BID #6 TAB Prov:Chun Blankenship MD 06/21/17 Promethazine (Phenergan)25 Mg [id number] Mg PO Q6H PRN (NAUSEA OR VOMITING) #10 TAB Ref 0 Prov:Chun Blankenship MD 06/21/17 Tramadol (Ultram)50 Mg Tab50 Mg PO Q6H PRN (PAIN) #20 TAB Prov:Chun Blankenship MD 06/21/17 Meloxicam (Mobic)15 Mg Tab15 Mg PO DAILY #20 TAB Prov:Chun Blankenship MD 06/21/17 Disposition: 01 DISCHARGE HOME Condition: Stable hCun Blankenship MD Jun 21, 2017 08:12
[2017-06-21] MEDS ORDERED: METOCLOPRAMIDE HCL 10 MG/2 ML VIAL IV PUSH ONE (08:15)
[2017-06-21] MEDS ORDERED: KETOROLAC TROMETHAMINE 30 MG/ML (IVP) VIAL IVP ONE (08:15)
[2017-06-21] MEDS ORDERED: diphenhydrAMINE HCL 50 MG/ML VIAL IV PUSH ONE (08:15)
[2017-06-21] MEDS ORDERED: HYDROmorphone HCL PF 1 MG/ML VIAL IVS ONE (08:15)
[2017-06-21 08:32] LABS: CHLORIDE 108 MEQ/L (98-107); POTASSIUM 3.8 MEQ/L (3.5-5.1); SODIUM (NA) 138 MEQ/L (136-145)
[2017-06-21 08:35] LABS: ANION GAP 8 MEQ/L (5-15); BICARBONATE 21.6 MEQ/L (21.0-32.0); BLOOD UREA NITROGEN 13 MG/DL (7-18)
[2017-06-21 08:36] LABS: APTT (PATIENT) 25.7 SEC (24.3-30.1); INTERNATIONAL NORMALIZED RATIO 0.9 RATIO; PROTHROMBIN TIME - PATIENT 10.4 SEC (9.8-11.6)
[2017-06-21 08:38] LABS: ALT (GPT) 33 U/L (10-53)
[2017-06-21 08:39] LABS: AST (GOT) 31 U/L (15-37); GLOMERULAR FILTRATION RATE 78 ML/MIN (>89)
[2017-06-21 08:40] LABS: TOTAL BILIRUBIN ADULT 0.3 MG/DL (0.2-1.0)
[2017-06-21 08:41] LABS: ALKALINE PHOSPHATASE 71 U/L (45-117)
[2017-06-21 08:45] LABS: AUTOMATED NEUTROPHIL # 7.5 TH/MM3 (1.8-7.7); BASOPHIL # 0.2 TH/MM3 (0-0.2); BASOPHIL % 1.7 % (0.0-2.0); EOSINOPHIL # 0.4 TH/MM3 (0-0.4); EOSINOPHIL % 3.6 % (0.0-4.0); HEMATOCRIT 43.7 % (35.0-46.0); HEMO FLAGS DIFF FINAL; LYMPH % 18.3 % (9.0-44.0); LYMPHOCYTE # 1.9 TH/MM3 (1.0-4.8); MEAN CELL VOLUME 80.4 FL (80.0-100.0); MEAN CORPUSCULAR HEMOGLOBIN 26.2 PG (27.0-34.0); MEAN CORPUSCULAR HGB CONC 32.6 % (32.0-36.0); MONO % 2.6 % (0.0-8.0); NEUT % 73.8 % (16.0-70.0); PLATELET COUNT 311 TH/MM3 (150-450); RED BLOOD COUNT 5.43 MIL/MM3 (4.00-5.30); RED CELL DISTRIBUTION WIDTH 14.2 % (11.6-17.2); WHITE BLOOD COUNT 10.3 TH/MM3 (4.0-11.0)
--- NOTE | 2017-06-21 09:25 | RADRPT ---
EXAM DATE/TIME: 06/21/2017 08:42 CORRECTION Corrected on: July 06, 2017; removed incorrect cc Ref Doc [facility] COMPARISON: CT ABDOMEN & PELVIS W/O CONTRAST, November 13, 2016, 10:09. INDICATIONS : Right flank pain. ORAL CONTRAST: No oral contrast ingested. RADIATION DOSE: 24.00 CTDIvol (mGy) MEDICAL HISTORY : Renal calculi. SURGICAL HISTORY : Cholecystectomy. ENCOUNTER: Initial ACUITY: 1 day PAIN SCALE: 5/10 LOCATION: Right flank TECHNIQUE: Volumetric scanning of the abdomen and pelvis was performed. Using automated exposure control and ad justment of the mA and/or kV according to patient size, radiation dose was kept as low as reasonably achievable to obtain optimal diagnostic quality images. DICOM format image data is available electro nically for review and comparison. FINDINGS: LOWER LUNGS: The visualized lower lungs are clear. LIVER: Homogeneous density without lesion. There is no dilation of the biliary tree. The patient is status post cholecystectomy. SPLEEN: Normal size without lesion. PANCREAS: Within normal limits. KIDNEYS: There are small nonobstructing renal stones seen bilaterally measuring up to 5 mm. The stones are mor e numerous on the right. No hydronephrosis is seen. A ureteral stone is not seen. ADRENAL GLANDS: Within normal limits. VASCULAR: There is no aortic aneurysm. BOWEL/MESENTERY: The stomach, small bowel, and colon demonstrate no acute abnormality. There is no free intraperitone al air or fluid. Small calcifications are seen in the right lower quadrant mesentery. Soft tissue bar nopathy is not present. ABDOMINAL WALL: Within normal limits. RETROPERITONEUM: There is no lymphadenopathy. BLADDER: No wall thickening or mass. REPRODUCTIVE: There is a T-shaped IUD in place. INGUINAL: There is no lymphadenopathy or hernia. MUSCULOSKELETAL: Within normal limits for patient age. CONCLUSION: 1. Multiple nonobstructing renal stones seen bilaterally been maneuvers on the right. 2. IUD. Christos Reyes MD on June 21, 2017 at 9:12 Board Certified Radiologist. This report was verified electronically. on July 06, 2017 at 12:37 Board Certified Radiologist. This report was verified electronically.
[2017-06-21] MEDS ORDERED: ULTR50TA5 PO (09:45)
[2017-06-21] MEDS ORDERED: MOBI15TA PO (09:45)
[2017-06-21] MEDS ORDERED: PROM25TA10 PO (09:46)
[2017-06-21 09:58] LABS: BLOOD, URINE TRACE (NEG); GLUCOSE,URINE NEG (NEG); KETONE, URINE NEG (NEG); NITRITE,URINE NEG (NEG)
[2017-06-21 10:06] LABS: METHOD OF COLLECTION CLEAN CATCH; RBC, URINE 0-3 /hpf (0-3); SQUAMOUS EPITHELIAL CELL URINE 0-5 /hpf (0-5); URINE COLOR YELLOW (YELLW/STRAW)
[2017-06-21 10:07] LABS: BACTERIA, URINE MANY /hpf; COMMENT (UR) CULTURE INDICATED; CULTURE IF INDICATED CULTURE INDICATED
[2017-06-21] MEDS ORDERED: BACT800T5 PO (10:13)
== END 2017-06-21 10:34 | disposition home or self-care (01) ==
LOC: PHED 07:53
DX: N20.0 Calculus of kidney (principal); N30.00 Acute cystitis without hematuria; Z87.442 Personal history of urinary calculi; Z90.49 Acquired absence of other specified parts of digestive tract
CPT/HCPCS: 74176; 80053; 81001; 85025; 85610; 85730; 87086; 96361; 96374; 96375; 99285; J1170; J1200; J1885; J2765; J7030

== ENCOUNTER 2017-11-09 16:16 | Inpatient (IN) | payer OTHER ==
[~2017-11-09] VITALS: Ht 172.7 cm; Wt 90.9 kg
[~2017-11-09 16:16] MED LIST changes: +BACT800T5 PO; -CIPR-9 PO; -CLON0.1T PO; -HYDR-3533 PO; +MOBI15TA PO; +PROM25TA10 PO; -PROM25TA5 PO; +TRAM50 PO
[2017-11-09 16:17] VITALS: BP 135/95; PULSE 112; RESP 20; TEMP 99.2; O2SAT 99
[2017-11-09 17:01] VITALS: BP 195/110; PULSE 97; RESP 15; TEMP 98.6; O2SAT 99
[2017-11-09] MEDS ORDERED: KETOROLAC TROMETHAMINE 30 MG/ML (IVP) VIAL IV PUSH ONE (17:15)
[2017-11-09] MEDS ORDERED: SODIUM CHLOR 0.9% 1000 ML INJ 1,000 ML IV ONE (17:15)
--- NOTE | 2017-11-09 17:15 | PD ---
HPI Chief Complaint: Flank/Kidney Pain Time Seen by Provider: 17:05 Travel History International Travel<30 days: No Contact w/Intl Traveler<30days: No Traveled to known affect area: No History of Present Illness HPI Patient is a 26-year-old female presents emergency department for evaluation of left flank pain radiating down her left groin. Patient states is happened to her before and she has a history of both kidney stones and ruptured ovarian cysts on the left side. Patient states the pain started approximately 2 hours prior to arrival, mild nausea without vomiting no diarrhea no vaginal bleeding or vaginal discharge. States the pain is intense, 10 out of 10, left flank, radiating to left groin, context as above. PFSH Past Medical History ADD: Yes Anemia: Yes Depression: Yes Cancer: No Cardiovascular Problems: No Diabetes: No Diminished Hearing: No Gastrointestinal Disorders: Yes (GALL STONES) Genitourinary: Yes (CHRONIC UTI'S) Hepatitis: No Hiatal Hernia: No Hypertension: No Kidney Stones: Yes Medical other: Yes (ANEMIA, RESTLESS LEG SYND.) Reproductive: Yes (ENDOMETRIOSIS) Respiratory: No Immunizations Current: Yes Migraines: Yes Thyroid Disease: Yes Tetanus Vaccination: < 5 Years ?: Not LMP: IUD, irregular : 1 Para: 1 Ovarian Cysts: Yes Dilation and Curettage (D&C): Yes Past Surgical History Abdominal Surgery: Yes (LAP TEE) Appendectomy: Yes Section: Yes (2010) Cholecystectomy: Yes Ear Surgery: Yes (PE TUBES) Genitourinary Surgery: Yes (ESWL, STONE RETRIEVAL) Gynecologic Surgery: Yes (FOR ENDOMETRIOSIS X 11) Pacemaker: No Tonsillectomy: Yes Other Surgery: Yes Social History Alcohol Use: Yes (COUPLE DRINKS PER MONTH) Tobacco Use: No Substance Use: No Allergies-Medications (Allergen,Severity, Reaction): Coded Allergies: ondansetron (Unverified Allergy, Severe, Hives, 11/09/17) cephalexin (Unverified Allergy, Intermediate, RASH, 11/09/17) morphine (Unverified Adverse Reaction, Intermediate, REDNESS AT IVP SITE, 11/09/17) Reported Meds & Prescriptions Reported Meds & Active Scripts Active Bactrim DS (Sulfamethoxazole-Trimethoprim) 800-160 Mg Tab 1 Tab PO BID Phenergan (Promethazine HCl) 25 Mg Tablet 25 Mg PO Q6H PRN Ultram (Tramadol HCl) 50 Mg Tab 50 Mg PO Q6H PRN Mobic (Meloxicam) 15 Mg Tab 15 Mg PO DAILY Reported Levothyroxine (Levothyroxine Sodium) 125 Mcg Tab 125 Mcg PO DAILY Review of Systems Except as stated in HPI: all other systems reviewed are Neg Physical Exam Narrative GENERAL: Well-developed, morbidly obese crying in pain. SKIN: Focused skin assessment warm/dry. HEAD: Atraumatic. Normocephalic. EYES: Pupils equal and round. No scleral icterus. No injection or drainage. ENT: No nasal bleeding or discharge. Mucous membranes pink and moist. NECK: Trachea midline. No JVD. CARDIOVASCULAR: Regular rate and rhythm. No murmur appreciated. RESPIRATORY: No accessory muscle use. Clear to auscultation. Breath sounds equal bilaterally. GASTROINTESTINAL: Abdomen soft, non-tender, nondistended. Hepatic and splenic margins not palpable. No CVA tenderness, she is minimally tender to palpation in the left lower quadrant. No rebound or percussive tenderness. GENITOURINARY: Exam performed with female nurse telephone station installer present all times, no bimanual tenderness, no cervical motion tenderness, minimal white discharge. No vaginal lesions seen. MUSCULOSKELETAL: No obvious deformities. No clubbing. No cyanosis. No edema. NEUROLOGICAL: Awake and alert. No obvious cranial nerve deficits. Motor grossly within normal limits. Normal speech. PSYCHIATRIC: Appropriate mood and affect; insight and judgment normal. Data Data Last Documented VS Vital Signs Date Time Temp Pulse Resp B/P (MAP) Pulse Ox O2 Delivery O2 Flow Rate FiO2 11/09/17 18:59 17 11/09/17 17:01 98.6 97 195/110 (138) 99 Room Air Orders Orders Complete Blood Count With Diff (11/09/17 16:36) Comprehensive Metabolic Panel (11/09/17 16:36) Urinalysis - C+S If Indicated (11/09/17 16:36) Ed Urine Pregnancytest Poc (11/09/17 16:36) Ketorolac Inj (Toradol Inj) (11/09/17 17:15) Sodium Chlor 0.9% 1000 Ml Inj (Ns 1000 M (11/09/17 17:15) Ed Poc Ultrasound (11/09/17 ) Urine Culture (11/09/17 16:40) Wet Prep Profile (11/09/17 17:52) Gc And Chlamydia Pcr (11/09/17 17:52) Hydromorphone Pf Inj (Dilaudid Pf Inj) (11/09/17 18:15) Us Kidney/Renal/Bladder (11/09/17 18:08) Us Pelvis Comp W Dop Transvag (11/09/17 17:52) Lactic Acid (11/09/17 19:23) Ct Abd/Pel W/O Iv Contrast (11/09/17 ) Blood Culture (11/09/17 19:23) Hydromorphone Pf Inj (Dilaudid Pf Inj) (11/09/17 19:30) Ciprofloxacin 400 Mg Premix (Cipro 400 M (11/09/17 19:45) Labs Laboratory Tests Test 11/09/17 16:40 11/09/17 17:13 11/09/17 20:05 11/09/17 20:15 Urine Color LIGHT-YELLOW Urine Turbidity HAZY Urine pH 6.5 Urine Specific [place] 1.018 Urine Protein NEG mg/dL Urine Glucose (UA) NEG mg/dL Urine Ketones NEG mg/dL Urine Occult Blood TRACE Urine Nitrite POS Urine Bilirubin NEG Urine Urobilinogen LESS THAN 2.0 MG/DL Urine Leukocyte Esterase TRACE Urine RBC 11 /hpf Urine WBC 2 /hpf Urine Squamous Epithelial Cells 4 /hpf Urine Bacteria RARE /hpf Urine Mucus FEW /lpf Microscopic Urinalysis Comment CULTURE INDICATED White Blood Count 13.7 TH/MM3 Red Blood Count 5.31 MIL/MM3 Hemoglobin 14.6 GM/DL Hematocrit 44.0 % Mean Corpuscular Volume 82.9 FL Mean Corpuscular Hemoglobin 27.5 PG Mean Corpuscular Hemoglobin Concent 33.2 % Red Cell Distribution Width 15.7 % Platelet Count 287 TH/MM3 Mean Platelet Volume 9.1 FL Neutrophils (%) (Auto) 71.6 % Lymphocytes (%) (Auto) 21.1 % Monocytes (%) (Auto) 5.3 % Eosinophils (%) (Auto) 1.6 % Basophils (%) (Auto) 0.4 % Neutrophils # (Auto) 9.8 TH/MM3 Lymphocytes # (Auto) 2.9 TH/MM3 Monocytes # (Auto) 0.7 TH/MM3 Eosinophils # (Auto) 0.2 TH/MM3 Basophils # (Auto) 0.1 TH/MM3 CBC Comment DIFF FINAL Differential Comment Blood Urea Nitrogen 16 MG/DL Creatinine 0.88 MG/DL Random Glucose 101 MG/DL Total Protein 8.2 GM/DL Albumin 3.5 GM/DL Calcium Level 9.3 MG/DL Alkaline Phosphatase 73 U/L Aspartate Amino Transf (AST/SGOT) 16 U/L Alanine Aminotransferase (ALT/SGPT) 25 U/L Total Bilirubin 0.2 MG/DL Sodium Level 137 MEQ/L Potassium Level 4.1 MEQ/L Chloride Level 105 MEQ/L Carbon Dioxide Level 23.5 MEQ/L Anion Gap 9 MEQ/L Estimat Glomerular Filtration Rate 77 ML/MIN Lactic Acid Level 0.6 mmol/L Clue Cells (Wet Prep) NONE SEEN Vaginal Trichomonas (Wet Prep) NONE SEEN Vaginal Yeast (Wet Prep) NONE SEEN MDM Medical Decision Making Medical Screen Exam Complete: Yes Emergency Medical Condition: Yes Differential Diagnosis Endometriosis, acute abdomen, kidney stones, ovarian torsion, ruptured ovarian cyst. Narrative Course Patient roomed in the ER. Pain consistent with ovarian cyst vs kidney stone. With multiple CT scans in the past per patient, the patient was recommended for US of kidneys and ovaries: Toradol given with no relief in pain. Dilaudid 1mg IV given with no re response. At this point I had recommended the patient have a CT scan to rule out life-threatening pathology as she has not responded to multiple doses of pain medicine in the emergency department. She verbalized understanding of risk of radiation and agrees to this study: Last 24 hours Impressions Renal Ultrasound 11/09/17 1808 Signed Impressions: Service Date/Time: Thursday, November 09, 2017 18:09 - CONCLUSION: Bilateral renal stones without hydronephrosis. Richar Alexander MD Abdomen/Pelvis/Transvag US 11/09/17 1752 Signed Impressions: Service Date/Time: Thursday, November 09, 2017 18:21 - CONCLUSION: Benign-appearing cyst in the left ovary and probable nabothian cyst otherwise unremarkable. Richar Alexander MD Abdomen/Pelvis CT 11/09/17 0000 Signed Impressions: Service Date/Time: Thursday, November 09, 2017 19:42 - CONCLUSION: Bilateral renal stones without ureteral stone or hydronephrosis. Richar Alexander MD An additional dose of IV Dilaudid was given to the patient and still remains quite uncomfortable in appearance.. Given her vital signs elevated blood cell count and UTIs evident but nitrate positive urine she does meet criteria for UTI and sepsis intractable abdominal pain and was discussed with Dr. Love in the patient for admission. Blood cultures were Christos, patient is allergic to Keflex started on ciprofloxacin. Lactic acid normal gait and the need for aggressive fluid resuscitation. Diagnosis Primary Impression: Sepsis Additional Impression: UTI (urinary tract infection) Admitting Information Admitting Physician Requests: Admit Condition: Stable Don Wren MD Nov 09, 2017 17:15
[2017-11-09 17:32] LABS: BACTERIA, URINE RARE /hpf; BILIRUBIN, URINE NEG (NEG); BLOOD, URINE TRACE (NEG); GLUCOSE,URINE NEG (NEG); KETONE, URINE NEG (NEG); MUCUS URINE FEW /lpf (OCC); NITRITE,URINE POS (NEG); PH, URINE 6.5 (5.0-8.5); SQUAMOUS EPITHELIAL CELL URINE 4 /hpf (0-5); URINE COLOR LIGHT-YELLOW (YELLW/STRAW); URINE LEUKOCYTE ESTERASE TRACE (NEG)
[2017-11-09 17:33] LABS: AUTOMATED NEUTROPHIL # 9.8 TH/MM3 (1.8-7.7); BASOPHIL # 0.1 TH/MM3 (0-0.2); BASOPHIL % 0.4 % (0.0-2.0); EOSINOPHIL # 0.2 TH/MM3 (0-0.4); EOSINOPHIL % 1.6 % (0.0-4.0); HEMOGLOBIN 14.6 GM/DL (11.6-15.3); LYMPH % 21.1 % (9.0-44.0); LYMPHOCYTE # 2.9 TH/MM3 (1.0-4.8); MEAN CELL VOLUME 82.9 FL (80.0-100.0); MEAN CORPUSCULAR HEMOGLOBIN 27.5 PG (27.0-34.0); MEAN CORPUSCULAR HGB CONC 33.2 % (32.0-36.0); MEAN PLATELET VOLUME 9.1 FL (7.0-11.0); MONO % 5.3 % (0.0-8.0); MONOCYTE # 0.7 TH/MM3 (0-0.9); NEUT % 71.6 % (16.0-70.0); PLATELET COUNT 287 TH/MM3 (150-450); RED BLOOD COUNT 5.31 MIL/MM3 (4.00-5.30); RED CELL DISTRIBUTION WIDTH 15.7 % (11.6-17.2); WHITE BLOOD COUNT 13.7 TH/MM3 (4.0-11.0)
[2017-11-09 18:05] LABS: ALBUMIN 3.5 GM/DL (3.4-5.0); ALT (GPT) 25 U/L (10-53); AST (GOT) 16 U/L (15-37); BICARBONATE 23.5 MEQ/L (21.0-32.0); BLOOD UREA NITROGEN 16 MG/DL (7-18); CALCIUM 9.3 MG/DL (8.5-10.1); CHLORIDE 105 MEQ/L (98-107); CREATININE 0.88 MG/DL (0.50-1.00); GLOMERULAR FILTRATION RATE 77 ML/MIN (>89); GLUCOSE,RANDOM 101 MG/DL (74-106); SODIUM (NA) 137 MEQ/L (136-145)
[2017-11-09 18:07] LABS: ALKALINE PHOSPHATASE 73 U/L (45-117); TOTAL BILIRUBIN ADULT 0.2 MG/DL (0.2-1.0); TOTAL PROTEIN 8.2 GM/DL (6.4-8.2)
[2017-11-09] MEDS ORDERED: HYDROmorphone HCL PF 2 MG/ML VIAL IV PUSH ONE ×2 (18:15→19:30)
--- NOTE | 2017-11-09 19:07 | RADRPT ---
EXAM DATE/TIME: 11/09/2017 18:09 [facility] COMPARISON: CT ABDOMEN & PELVIS W/O CONTRAST, June 21, 2017, 8:42. INDICATIONS : Flank pain. MEDICAL HISTORY : Thyroid disease. Gall stones. Ovarian cysts. Renal disease. Kidney stones. Anemia. Depression. Restle ss leg syndrome. SURGICAL HISTORY : Tonsillectomy. Appendectomy. Cholecystectomy. Surgery for endometriosis. Dilation and curettage. ENCOUNTER: Subsequent ACUITY: 3 days PAIN SCORE: 10/10 LOCATION: Bilateral flank MEASUREMENTS: RIGHT KIDNEY: 10.5 x 3.9 x 4.6 cm LEFT KIDNEY: 12.4 x 3.7 x 5.1 cm FINDINGS: There is no hydronephrosis. No definite solid mass is identified. There are echogenic areas in both kidneys probably small stones the largest measures 6 mm in the upper pole of the right kidney and 5 m m the portal of the left kidney. The bladder is grossly intact for technique and not being completely distended during the exam. CONCLUSION: Bilateral renal stones without hydronephrosis. Richar Alexander MD on November 09, 2017 at 19:02 Board Certified Radiologist. This report was verified electronically.
--- NOTE | 2017-11-09 19:14 | RADRPT ---
EXAM DATE/TIME: 11/09/2017 18:21 [facility] COMPARISON: No previous studies available for comparison. INDICATIONS : Pelvic pain. MEDICAL HISTORY : Thyroid disease. Gall stones. Ovarian cysts. Renal disease. Kidney stones. Anemia. Depression. Restle ss leg syndrome. SURGICAL HISTORY : Tonsillectomy. Appendectomy. Cholecystectomy. Surgery for endometriosis. Dilation and curettage. ENCOUNTER: Initial ACUITY: 3 days PAIN SCORE: 10/10 LOCATION: Bilateral pelvis MEASUREMENTS: UTERUS: 8.5 x 4.6 x 4.7 cm ENDOMETRIAL STRIPE: 5 mm LEFT OVARY: 3.6 x 2.7 x 2.3 cm FINDINGS: There is no free fluid, or adnexal mass. No definite uterine mass is identified for technique. There are small cysts in the left ovary the largest measures 1.8 cm in size with a cystic area in the lowe r uterine segment measures 5 mm also benign a few nabothian cysts. IUD is in place. CONCLUSION: Benign-appearing cyst in the left ovary and probable nabothian cyst otherwise unremar kable. Richar Alexander MD on November 09, 2017 at 19:10 Board Certified Radiologist. This report was verified electronically.
[2017-11-09] MEDS ORDERED: CIPROFLOXACIN 400 MG PREMIX 200 ML IV ONE (19:45)
--- NOTE | 2017-11-09 19:57 | RADRPT ---
EXAM DATE/TIME: 11/09/2017 19:42 [facility] COMPARISON: CT ABDOMEN & PELVIS W/O CONTRAST, June 21, 2017, 8:42. INDICATIONS : Flank pain. ORAL CONTRAST: No oral contrast ingested. RADIATION DOSE: 17.08 CTDIvol (mGy) MEDICAL HISTORY : Renal calculi. SURGICAL HISTORY : Appendectomy. Cholecystectomy. ENCOUNTER: Initial ACUITY: 1 day PAIN SCALE: 5/10 LOCATION: Bilateral flank TECHNIQUE: Volumetric scanning of the abdomen and pelvis was performed. Using automated exposure control and ad justment of the mA and/or kV according to patient size, radiation dose was kept as low as reasonably achievable to obtain optimal diagnostic quality images. DICOM format image data is available electro nically for review and comparison. FINDINGS: CT Abdomen: The liver, spleen, pancreas, adrenals are unremarkable. There are 3 separate stones the r ight kidney the largest measures 5 mm and a couple of tiny stones in the left kidney the larger one m easures 3 mm not significantly changed. There is no ureteral stone and there is no hydronephrosis on either side. There is no evidence for any appreciable pathological adenopathy, free fluid, or bowel o bstruction. CT pelvis: There is no evidence for mass, abscess formation, or any significant adenopathy within the pelvis. IUD is in place. CONCLUSION: Bilateral renal stones without ureteral stone or hydronephrosis. Richar Alexander MD on November 09, 2017 at 19:50 Board Certified Radiologist. This report was verified electronically.
[2017-11-09] MEDS ORDERED: ACETAMINOPHEN 325 MG TAB PO PRN (20:45)
[2017-11-09] MEDS ORDERED: SODIUM CHLORIDE 0.9% FLUSH 10 ML FLUSH IV FLUSH PRN (20:45)
[2017-11-09] MEDS ORDERED: BISACODYL 10 MG SUPP RECTAL PRN (20:45)
[2017-11-09] MEDS ORDERED: NALOXONE HCL 0.4 MG/ML AMP IV PUSH PRN (20:45)
[2017-11-09] MEDS ORDERED: MAGNESIUM HYDROXIDE SUSP 30 ML CUP PO PRN (20:45)
[2017-11-09] MEDS ORDERED: LACTULOSE SYRUP 20 GM/30 ML CUP PO PRN (20:45)
[2017-11-09] MEDS ORDERED: SENNOSIDES 8.6 MG TAB PO PRN (20:45)
[2017-11-09] MEDS ORDERED: ONDANSETRON HCL 4 MG/2 ML VIAL IVP PRN (20:45)
[2017-11-09 21:09] VITALS: BP 172/106; PULSE 90; RESP 18; O2SAT 97
[2017-11-09] MEDS ORDERED: diphenhydrAMINE HCL 25 MG CAP PO PRN (21:15)
[2017-11-09] MEDS: SODIUM CHLOR 0.9% 1000 ML INJ 1,000 ML IV SCH (21:20)
[2017-11-09] MEDS: SODIUM CHLORIDE 0.9% FLUSH 10 ML FLUSH IV FLUSH SCH (21:20)
--- NOTE | 2017-11-09 21:21 | HHI.HP ---
[facility] Primary Care Physician Jose Carrasquillo, Admission Diagnosis UTI/Sepsis/Intractible Abdominal pain. Diagnoses: Travel History International Travel<30 Days: No Contact w/Intl Traveler <30 Da: No Traveled to Known Affected Are: No History of Present Illness 26-year-old female with a past medical history of hypothyroidism and endometriosis presents with a one-day history of left-sided and left lower quadrant flank and abdominal pain. The patient denies any dysuria. She reports accompanying severe nausea. She states the pain began around noon today and gradually became unbearable. She denies any dysuria. WBCs 13.7. Lactic acid pending. UA consistent with urinary tract infection. CT of the abdomen and pelvis and renal ultrasound showed renal stones without urine will stone or hydronephrosis. Transvaginal ultrasound reveals a benign-appearing cyst in the left ovary. She was tachycardic on arrival with a pulse of 112. Temperature 99.2, history rate 20, BP 135/95, pulse ox 99% on room air. Review of Systems Denies fever or chills Denies blurry vision, otorrhea, rhinorrhea Denies sore throat and cough No chest pain, palpitations, shortness of breath Positive abdominal/pelvic/flank pain Denies constipation/diarrhea/vomiting. Positive nausea Denies muscle pain/weakness No rashes Past Family Social History Past Medical History Endometriosis Hypothyroidism Past Surgical History Various endometrial surgeries 11 Cholecystectomy Reported Medications Reported Meds & Active Scripts Active Bactrim DS (Sulfamethoxazole-Trimethoprim) 800-160 Mg Tab 1 Tab PO BID Phenergan (Promethazine HCl) 25 Mg Tablet 25 Mg PO Q6H PRN Ultram (Tramadol HCl) 50 Mg Tab 50 Mg PO Q6H PRN Mobic (Meloxicam) 15 Mg Tab 15 Mg PO DAILY Reported Levothyroxine (Levothyroxine Sodium) 125 Mcg Tab 125 Mcg PO DAILY Allergies: Coded Allergies: ondansetron (Unverified Allergy, Severe, Hives, 11/09/17) cephalexin (Unverified Allergy, Intermediate, RASH, 11/09/17) morphine (Unverified Adverse Reaction, Intermediate, REDNESS AT IVP SITE, 11/09/17) Family History Denies family history of DM/CAD Social History Occasional alcohol use. Denies tobacco, illicit drugs. Physical Exam Vital Signs Vital Signs Date Time Temp Pulse Resp B/P (MAP) Pulse Ox O2 Delivery O2 Flow Rate FiO2 11/09/17 21:09 90 18 172/106 (128) 97 Room Air 11/09/17 20:37 18 11/09/17 18:59 17 11/09/17 18:27 18 11/09/17 17:01 98.6 97 15 195/110 (138) 99 Room Air 11/09/17 16:17 99.2 112 20 135/95 (108) 99 Room Air Physical Exam GENERAL: Obese, female lying in bed crying in pain SKIN: No rashes, ecchymoses or lesions. Cool and dry. HEAD: Atraumatic. Normocephalic. No temporal or scalp tenderness. EYES: Pupils equal round and reactive. Extraocular motions intact. No scleral icterus. No injection or drainage. ENT: Nose without bleeding, purulent drainage or septal hematoma. Throat without erythema, tonsillar hypertrophy or exudate. Uvula midline. Airway patent. NECK: Trachea midline. No JVD or lymphadenopathy. Supple, nontender, no meningeal signs. CARDIOVASCULAR: Regular rate and rhythm without murmurs, gallops, or rubs. RESPIRATORY: Clear to auscultation. Breath sounds equal bilaterally. No wheezes , rales, or rhonchi. GASTROINTESTINAL: Abdomen soft, exquisitely tender to palpation in the left lower quadrant/pelvic region, nondistended. No hepato-splenomegaly, or palpable masses. Solitary guarding. MUSCULOSKELETAL: Extremities without clubbing, cyanosis, or edema. No joint tenderness, effusion, or edema noted. No calf tenderness. NEUROLOGICAL: Awake and alert. Cranial nerves II through XII intact. Motor and sensory grossly within normal limits. Normal speech. Laboratory Laboratory Tests Test 11/09/17 16:40 11/09/17 17:13 11/09/17 20:05 11/09/17 20:15 Urine Color LIGHT-YELLOW Urine Turbidity HAZY Urine pH 6.5 Urine Specific [place] 1.018 Urine Protein NEG Urine Glucose (UA) NEG Urine Ketones NEG Urine Occult Blood TRACE Urine Nitrite POS Urine Bilirubin NEG Urine Urobilinogen LESS THAN 2.0 Urine Leukocyte Esterase TRACE Urine RBC 11 Urine WBC 2 Urine Squamous Epithelial Cells 4 Urine Bacteria RARE Urine Mucus FEW Microscopic Urinalysis Comment CULTURE INDICATED White Blood Count 13.7 Red Blood Count 5.31 Hemoglobin 14.6 Hematocrit 44.0 Mean Corpuscular Volume 82.9 Mean Corpuscular Hemoglobin 27.5 Mean Corpuscular Hemoglobin Concent 33.2 Red Cell Distribution Width 15.7 Platelet Count 287 Mean Platelet Volume 9.1 Neutrophils (%) (Auto) 71.6 Lymphocytes (%) (Auto) 21.1 Monocytes (%) (Auto) 5.3 Eosinophils (%) (Auto) 1.6 Basophils (%) (Auto) 0.4 Neutrophils # (Auto) 9.8 Lymphocytes # (Auto) 2.9 Monocytes # (Auto) 0.7 Eosinophils # (Auto) 0.2 Basophils # (Auto) 0.1 CBC Comment DIFF FINAL Differential Comment Blood Urea Nitrogen 16 Creatinine 0.88 Random Glucose 101 Total Protein 8.2 Albumin 3.5 Calcium Level 9.3 Alkaline Phosphatase 73 Aspartate Amino Transf (AST/SGOT) 16 Alanine Aminotransferase (ALT/SGPT) 25 Total Bilirubin 0.2 Sodium Level 137 Potassium Level 4.1 Chloride Level 105 Carbon Dioxide Level 23.5 Anion Gap 9 Estimat Glomerular Filtration Rate 77 Clue Cells (Wet Prep) NONE SEEN Vaginal Trichomonas (Wet Prep) NONE SEEN Vaginal Yeast (Wet Prep) NONE SEEN Date/Time Source Procedure Growth Status 11/09/17 20:05 Blood Peripheral Aerobic Blood Culture Pending Received 11/09/17 20:05 Blood Peripheral Anaerobic Blood Culture Pending Received 11/09/17 16:40 Urine Clean Catch Urine Culture Pending Received Result Diagram: 11/09/17 1713 11/09/17 1713 Caprini VTE Risk Assessment Caprini VTE Risk Assessment: No/Low Risk (score <= 1) Caprini Risk Assessment Model Point Value = 1 Point Value = 2 Point Value = 3 Point Value = 5 Age 41-60 Minor surgery BMI > 25 kg/m2 Swollen legs Varicose veins or History of unexplained or recurrent spontaneous Oral contraceptives or hormone replacement Sepsis (< 1 month) Serious lung disease, including pneumonia (< 1 month) Abnormal pulmonary function Acute myocardial infarction Congestive heart failure (< 1 month) History of inflammatory bowel disease Medical patient at bed rest Age 61-74 Arthroscopic surgery Major open surgery (> 45 min) Laparoscopic surgery (> 45 min) Malignancy Confined to bed (> 72 hours) Immobilizing plaster cast Central venous access Age >= 75 History of VTE Family history of VTE Factor V Leiden Prothrombin [id number] Lupus anticoagulant Anticardiolipin antibodies Elevated serum homocysteine Heparin-induced thrombocytopenia Other congenital or acquired thrombophilia Stroke (< 1 month) Elective arthroplasty Hip, pelvis, or leg fracture Acute spinal cord injury (< 1 month) Prophylaxis Regimen Total Risk Factor Score Risk Level Prophylaxis Regimen 0-1 Low Early ambulation 2 Moderate Order ONE of the following: *Sequential Compression Device (SCD) *Heparin 5000 units SQ BID 3-4 Higher Order ONE of the following medications: *Heparin 5000 units SQ TID *Enoxaparin/Lovenox 40 mg SQ daily (WT < 150 kg, CrCl > 30 mL/min) *Enoxaparin/Lovenox 30 mg SQ daily (WT < 150 kg, CrCl > 10-29 mL/min) *Enoxaparin/Lovenox 30 mg SQ BID (WT < 150 kg, CrCl > 30 mL/min) AND/OR *Sequential Compression Device (SCD) 5 or more Highest Order ONE of the following medications: *Heparin 5000 units SQ TID (Preferred with Epidurals) *Enoxaparin/Lovenox 40 mg SQ daily (WT < 150 kg, CrCl > 30 mL/min) *Enoxaparin/Lovenox 30 mg SQ daily (WT < 150 kg, CrCl > 10-29 mL/min) *Enoxaparin/Lovenox 30 mg SQ BID (WT < 150 kg, CrCl > 30 mL/min) AND *Sequential Compression Device (SCD) Assessment and Plan Assessment and Plan Assessment/plan: 1. Urosepsis Patient with leukocytosis and tachycardia UA with rare bacteria, trace leukocyte esterase and positive nitrates Urine culture pending Patient is allergic to Keflex, start IV Zosyn Blood cultures pending Lactic acid pending IV fluid hydration Dilaudid for pain 2. Hypothyroidism Continue home Synthroid FEN Regular Diet NS at 125 cc/hr Electrolytes: monitor and replete prn SCDs Physician Certification 2 Midnight Certification Type: Admission for Inpatient Services Order for Inpatient Services The services are ordered in accordance with Medicare regulations or non- Medicare payer requirements, as applicable. In the case of services not specified as inpatient-only, they are appropriately provided as inpatient services in accordance with the 2-midnight benchmark. Estimated LOS (days): 2 2 days is the estimated time the patient will need to remain in the hospital, assuming treatment plan goals are met and no additional complications. Post-Hospital Plan: Home Deborah Love MD Nov 09, 2017 21:21
[2017-11-09 21:32] VITALS: BP 166/69; PULSE 75; RESP 18; O2SAT 98
[2017-11-09] MEDS: PROMETHAZINE HCL 25 MG TAB PO PRN (21:36)
[2017-11-09 22:11] VITALS: BP 192/117; PULSE 70; RESP 18; TEMP 96.7; O2SAT 100
[2017-11-09] MEDS: DOCUSATE SODIUM 50 MG/SENNA 8.6 MG TAB PO SCH (22:22)
[2017-11-09] MEDS: PIPERACIL-TAZO 4.5 GM PREMIX 100 ML IV SCH (22:53)
[2017-11-09 22:56] VITALS: BP 154/89; PULSE 82; RESP 18; TEMP 97.5; O2SAT 96
[2017-11-09] MEDS: HYDROmorphone HCL PF 2 MG/ML VIAL IV PUSH PRN (23:56)
[2017-11-10 03:54] VITALS: BP 141/61; PULSE 69; RESP 18; TEMP 96.7; O2SAT 95
[2017-11-10] MEDS: HYDROmorphone HCL PF 2 MG/ML VIAL IV PUSH PRN ×2 (04:05→08:13)
[2017-11-10] MEDS: PROMETHAZINE HCL 25 MG TAB PO PRN (04:23)
[2017-11-10] MEDS: PIPERACIL-TAZO 4.5 GM PREMIX 100 ML IV SCH ×2 (04:29→08:17)
[2017-11-10] MEDS: SODIUM CHLOR 0.9% 1000 ML INJ 1,000 ML IV SCH ×2 (04:35→12:35)
[2017-11-10 07:23] LABS: AUTOMATED NEUTROPHIL # 6.3 TH/MM3 (1.8-7.7); BASOPHIL % 0.3 % (0.0-2.0); EOSINOPHIL # 0.3 TH/MM3 (0-0.4); EOSINOPHIL % 2.6 % (0.0-4.0); HEMATOCRIT 36.6 % (35.0-46.0); HEMOGLOBIN 12.2 GM/DL (11.6-15.3); LYMPH % 32.9 % (9.0-44.0); LYMPHOCYTE # 3.5 TH/MM3 (1.0-4.8); MEAN CELL VOLUME 83.9 FL (80.0-100.0); MEAN CORPUSCULAR HGB CONC 33.4 % (32.0-36.0); MONO % 5.9 % (0.0-8.0); MONOCYTE # 0.6 TH/MM3 (0-0.9); NEUT % 58.3 % (16.0-70.0); PLATELET COUNT 235 TH/MM3 (150-450); RED BLOOD COUNT 4.36 MIL/MM3 (4.00-5.30); RED CELL DISTRIBUTION WIDTH 15.3 % (11.6-17.2); WHITE BLOOD COUNT 10.8 TH/MM3 (4.0-11.0)
[2017-11-10 07:39] LABS: BICARBONATE 24.7 MEQ/L (21.0-32.0); CALCIUM 8.4 MG/DL (8.5-10.1); CREATININE 0.83 MG/DL (0.50-1.00)
[2017-11-10 08:00] VITALS: BP 150/91; PULSE 79; RESP 18; TEMP 96.8; O2SAT 100
[2017-11-10] MEDS: DOCUSATE SODIUM 50 MG/SENNA 8.6 MG TAB PO SCH (08:16)
[2017-11-10] MEDS: SODIUM CHLORIDE 0.9% FLUSH 10 ML FLUSH IV FLUSH SCH (08:20)
[2017-11-10] MEDS ORDERED: LEVOTHYROXINE SODIUM 125 MCG TAB PO SCH (09:00)
[2017-11-10] MEDS ORDERED: TRAM50TA PO (11:15)
[2017-11-10] MEDS ORDERED: BACT800T5 PO (11:15)
[2017-11-10] MEDS ORDERED: PROM25TA10 PO (11:15)
--- NOTE | 2017-11-10 11:16 | HHI.DCPOC ---
Discharge Care Plan Diagnosis: (1) Abdominal pain (2) UTI (urinary tract infection) (3) Nephrolithiasis Goals to Promote Your Health * To prevent worsening of your condition and complications * To maintain your health at the optimal level Directions to Meet Your Goals Take your medications as prescribed Follow your dietary instruction Follow activity as directed Keep your appointments as scheduled Take your immunizations and boosters as scheduled If your symptoms worsen call your PCP, if no PCP go to Urgent Care Center or Emergency Room Smoking is Dangerous to Your Health. Avoid second hand smoke Call the 24-hour hour crisis hotline for domestic abuse at Catie Wilkinson MD Nov 10, 2017 11:16
--- NOTE | 2017-11-10 11:16 | HHI.DS ---
Discharge Summary Admission Date Nov 09, 2017 at 20:30 Discharge Date: Nov 12, 2017 Admitting Diagnosis UTI/Sepsis/Intractible Abdominal pain. (1) Abdominal pain ICD Code: R10.9 - Unspecified abdominal pain Diagnosis: Principal (2) Nephrolithiasis ICD Code: N20.0 - Calculus of kidney Diagnosis: Secondary Status: Acute Procedures none Brief History - From Admission 26-year-old female with a past medical history of hypothyroidism and endometriosis presents with a one-day history of left-sided and left lower quadrant flank and abdominal pain. The patient denies any dysuria. She reports accompanying severe nausea. She states the pain began around noon today and gradually became unbearable. She denies any dysuria. WBCs 13.7. Lactic acid pending. UA consistent with urinary tract infection. CT of the abdomen and pelvis and renal ultrasound showed renal stones without urine will stone or hydronephrosis. Transvaginal ultrasound reveals a benign-appearing cyst in the left ovary. She was tachycardic on arrival with a pulse of 112. Temperature 99.2, history rate 20, BP 135/95, pulse ox 99% on room air. CBC/BMP: 11/10/17 0503 11/10/17 0503 Significant Findings Laboratory Tests Test 11/09/17 16:40 11/09/17 17:13 11/09/17 20:05 11/09/17 20:15 Urine Turbidity HAZY (CLEAR) Urine Occult Blood TRACE (NEG) Urine Nitrite POS (NEG) Urine Leukocyte Esterase TRACE (NEG) Urine RBC 11 /hpf (0-3) Urine Bacteria RARE /hpf (NONE) Urine Mucus FEW /lpf (OCC) White Blood Count 13.7 TH/MM3 (4.0-11.0) Red Blood Count 5.31 MIL/MM3 (4.00-5.30) Neutrophils (%) (Auto) 71.6 % (16.0-70.0) Neutrophils # (Auto) 9.8 TH/MM3 (1.8-7.7) Estimat Glomerular Filtration Rate 77 ML/MIN (>89) Test 11/10/17 05:03 Calcium Level 8.4 MG/DL (8.5-10.1) Estimat Glomerular Filtration Rate 82 ML/MIN (>89) Imaging Last Impressions Renal Ultrasound 11/09/17 1808 Signed Impressions: Service Date/Time: Thursday, November 09, 2017 18:09 - CONCLUSION: Bilateral renal stones without hydronephrosis. Richar Alexander MD Abdomen/Pelvis/Transvag US 11/09/17 1752 Signed Impressions: Service Date/Time: Thursday, November 09, 2017 18:21 - CONCLUSION: Benign-appearing cyst in the left ovary and probable nabothian cyst otherwise unremarkable. Richar Alexander MD Abdomen/Pelvis CT 11/09/17 0000 Signed Impressions: Service Date/Time: Thursday, November 09, 2017 19:42 - CONCLUSION: Bilateral renal stones without ureteral stone or hydronephrosis. Richar Alexander MD PE at Discharge GENERAL: in NAD was initially found sound asleep. SKIN: Warm and dry. HEAD: Normocephalic. EYES: No scleral icterus. No injection or drainage. NECK: Supple, trachea midline. No JVD or lymphadenopathy. CARDIOVASCULAR: Regular rate and rhythm without murmurs, gallops, or rubs. RESPIRATORY: Breath sounds equal bilaterally. No accessory muscle use. GASTROINTESTINAL: Abdomen soft, non-tender, nondistended. MUSCULOSKELETAL: No cyanosis, or edema. BACK: Nontender without obvious deformity. No CVA tenderness. Pt update on day of discharge f/u for abdominal pain pain has improved drastically. described as sharp on left lower quadrant. Nausea has improved. Tolerating oral intake. remains afebrile. denied any urinary symptoms. 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 Hospital Course Patient was admitted for questionable sepsis due to tachycardia that resolved after pain was controlled and mildly elevated WBC. Patient has CT scan of ab/ pelvis which showed nonobstructing stones which patient is aware of and a transvaginal us which shows benign-appearing cyst in the left ovary and probable nabothian. suspected UTI despite have no symptoms. treated empirically with zosyn and switch to oral bactrim on discharge since patient improved quickly. based on clinically exam, history,labs and imaging pain most likely due to rupture ovarian cyst. 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 MUNOZ New Medications: Tramadol (Tramadol) 50 Mg Tab 50 MG PO Q4H for PAIN, #20 TAB 0 Refills Continued Medications: Levothyroxine (Levothyroxine) 125 Mcg Tab 125 MCG PO DAILY for Thyroid, #30 TAB 0 Refills Promethazine (Phenergan) 25 Mg Tablet 25 MG PO Q6H PRN for NAUSEA OR VOMITING, #10 TAB 0 Refills (This prescription has been renewed) Sulfamethoxazole-Trimethoprim (Bactrim DS) 800-160 Mg Tab 1 TAB PO BID for Infection, #10 TAB 0 Refills (This prescription has been renewed) Discontinued Medications: Meloxicam (Mobic) 15 Mg Tab 15 MG PO DAILY for Pain, #20 TAB Tramadol (Ultram) 50 Mg Tab 50 MG PO Q6H PRN for PAIN, #20 TAB Catie Wilkinson MD Nov 10, 2017 11:16
[2017-11-10 12:00] VITALS: BP 135/76; PULSE 75; RESP 18; TEMP 97.9; O2SAT 98
== END 2017-11-10 13:47 | disposition home or self-care (01) | DRG 760 ==
LOC: NEPD 16:16 → NEDA 20:30 → N06A 22:02
PROVIDERS: ADMIT Family Medicine; ATTEND Family Medicine
DX: N83.202 Unspecified ovarian cyst, left side (principal); N39.0 Urinary tract infection, site not specified; N20.0 Calculus of kidney; E03.9 Hypothyroidism, unspecified; R00.0 Tachycardia, unspecified; F32.9 Major depressive disorder, single episode, unspecified; R11.0 Nausea; Z87.442 Personal history of urinary calculi
CPT/HCPCS: 74176; 76775; 76830; 76856; 80048; 80053; 81001; 83605; 84703; 85025; 87040; 87086; 87210; 87491; 87591; 93975; 96361; 96365; 96375; J0744; J1170; J1885; J2543; J7030; Q0169

== ENCOUNTER 2018-01-17 21:53 | Emergency (ER) | payer SELFPAY ==
[~2018-01-17] VITALS: Ht 172.7 cm; Wt 91.0 kg
[~2018-01-17 21:53] MED LIST changes: -MOBI15TA PO; -TRAM50 PO; +TRAM50TA PO
[2018-01-17 22:56] VITALS: BP 192/128; PULSE 103; RESP 20; TEMP 98.4; O2SAT 99
--- NOTE | 2018-01-18 00:04 | PD ---
HPI Chief Complaint: Pain: Acute or Chronic Time Seen by Provider: 23:35 Travel History International Travel<30 days: No Contact w/Intl Traveler<30days: No Traveled to known affect area: No History of Present Illness HPI Patient's primary care is Dr. Villagomez. Patient comes in complaining of suprapubic area pain ongoing chronically over the past few months she has had multiple workups and she has an upcoming surgery by a Dr. Christianson in [place] for her endometriosis. Describes the pain as sharp, suprapubic, and location 9 out of 10, not associated with any vaginal bleeding, patient also denies any urinary frequency/urgency/dysuria/hematuria. Patient denies any alleviating or aggravating factors. Patient denies any associated factors such as fever, rash , headache, chest pain, back pain, nausea, vomiting or diarrhea. Patient states that she has allergies to Keflex which causes hiveS.... Patient also states that she was given Zofran and morphine together which ended up causing hives she is unsure as to which one caused Past medical history significant for hypothyroidism, migraine, gallstone with cholecystectomy, endometriosis, appendectomy, kidney stones and anemia. PFSH Past Medical History ADD: Yes Anemia: Yes Depression: Yes Cancer: No Cardiovascular Problems: No Diabetes: No Diminished Hearing: No Gastrointestinal Disorders: Yes (GALL STONES) Genitourinary: Yes (CHRONIC UTI'S) Hepatitis: No Hiatal Hernia: No Hypertension: No Kidney Stones: Yes Medical other: Yes (ANEMIA, RESTLESS LEG SYND.) Reproductive: Yes (ENDOMETRIOSIS) Respiratory: No Immunizations Current: Yes Migraines: Yes Thyroid Disease: Yes ?: Not : 1 Para: 1 Ovarian Cysts: Yes Dilation and Curettage (D&C): Yes Past Surgical History Abdominal Surgery: Yes (LAP TEE) Appendectomy: Yes Section: Yes (2010) Cholecystectomy: Yes Ear Surgery: Yes (PE TUBES) Genitourinary Surgery: Yes (ESWL, STONE RETRIEVAL) Gynecologic Surgery: Yes (FOR ENDOMETRIOSIS X 11) Pacemaker: No Tonsillectomy: Yes Other Surgery: Yes Social History Alcohol Use: Yes (COUPLE DRINKS PER MONTH) Tobacco Use: No Substance Use: No Allergies-Medications (Allergen,Severity, Reaction): Coded Allergies: ondansetron (Unverified Allergy, Severe, Hives, 01/17/18) cephalexin (Unverified Allergy, Intermediate, RASH, 01/17/18) morphine (Unverified Adverse Reaction, Intermediate, REDNESS AT IVP SITE, 01/17/18) Reported Meds & Prescriptions Reported Meds & Active Scripts Active Tramadol (Tramadol HCl) 50 Mg Tab 50 Mg PO Q4H Bactrim DS (Sulfamethoxazole-Trimethoprim) 800-160 Mg Tab 1 Tab PO BID Phenergan (Promethazine HCl) 25 Mg Tablet 25 Mg PO Q6H PRN Reported Levothyroxine (Levothyroxine Sodium) 125 Mcg Tab 125 Mcg PO DAILY Review of Systems General / Constitutional: No: Fever Eyes: No: Visual changes HENT: No: Headaches Cardiovascular: No: Chest Pain or Discomfort Respiratory: No: Shortness of Breath Gastrointestinal: Positive: Abdominal Pain (Suprapubic in location) Genitourinary: No: Dysuria Musculoskeletal: No: Pain Skin: No Rash Neurologic: No: Weakness Psychiatric: No: Depression Endocrine: No: Polydipsia Hematologic/Lymphatic: No: Easy Bruising Physical Exam Narrative GENERAL: SKIN: Warm and dry. HEAD: Atraumatic. Normocephalic. EYES: Pupils equal and round. No scleral icterus. No injection or drainage. ENT: No nasal bleeding or discharge. Mucous membranes pink and moist. NECK: Trachea midline. No JVD. CARDIOVASCULAR: Regular rate and rhythm. RESPIRATORY: No accessory muscle use. Clear to auscultation. Breath sounds equal bilaterally. GASTROINTESTINAL: Abdomen soft, non-tender, nondistended. While the patient was distracted there was no suprapubic tenderness to palpation, in particular there was no evidence of rigidity, guarding, rebound... However as soon as the patient was not distracted she would go on and start moaning and crying and sobbing stating that she was in a lot of pain. MUSCULOSKELETAL: Extremities without clubbing, cyanosis, or edema. No obvious deformities. NEUROLOGICAL: Awake and alert. No obvious cranial nerve deficits. Motor grossly within normal limits. Five out of 5 muscle strength in the arms and legs. Normal speech. PSYCHIATRIC: Appropriate mood and affect; insight and judgment normal. Data Data Last Documented VS Vital Signs Date Time Temp Pulse Resp B/P (MAP) Pulse Ox O2 Delivery O2 Flow Rate FiO2 01/17/18 22:56 98.4 103 20 192/128 (149) 99 Room Air Orders Orders Urinalysis - C+S If Indicated (01/17/18 23:39) Ct Abd/Pel W/O Iv Contrast (01/17/18 23:39) Ed Urine Pregnancytest Poc (01/17/18 23:39) Drug Screen, Random Urine (01/17/18 23:39) Dicyclomine Inj (Bentyl Inj) (01/18/18 00:15) Promethazine Inj (Phenergan Inj) (01/18/18 00:15) Labs Laboratory Tests Test 01/17/18 23:48 Urine Color YELLOW Urine Turbidity CLEAR Urine pH 6.0 Urine Specific [place] 1.020 Urine Protein NEG mg/dL Urine Glucose (UA) NEG mg/dL Urine Ketones NEG mg/dL Urine Occult Blood TRACE Urine Nitrite NEG Urine Bilirubin NEG Urine Urobilinogen LESS THAN 2.0 MG/DL Urine Leukocyte Esterase SMALL Urine RBC 2 /hpf Urine WBC 3 /hpf Urine Squamous Epithelial Cells 1 /hpf Urine Bacteria RARE /hpf Microscopic Urinalysis Comment CULT NOT INDICATED Urine Opiates Screen NEG Urine Barbiturates Screen NEG Urine Amphetamines Screen NEG Urine Benzodiazepines Screen NEG Urine Cocaine Screen NEG Urine Cannabinoids Screen NEG MDM Medical Decision Making Medical Screen Exam Complete: Yes Emergency Medical Condition: Yes Medical Record Reviewed: Yes Differential Diagnosis Colitis versus diverticulitis versus abscess versus perforation versus UTI versus related Narrative Course test negative CT was read by radiologist as no acute abnormality, IUD, bilateral nonobstructing renal calculi, and prior cholecystectomy. Urinalysis shows no evidence of UTI Tox screen is negative for opiates, barbiturates, amphetamines, benzodiazepines , cocaine, and marijuana. Diagnosis Primary Impression: Abdominal pain Qualified Codes: R10.30 - Lower abdominal pain, unspecified Patient Instructions: Abdominal Pain (ED), General Instructions Additional Instructions: LIKELY ENDOMETRIOSIS TYPE PAIN, WITHOUT ANY URINARY TRACT INFECTION, NON AND WITHOUT ANY EVIDENCE OF COLITIS/DIVERTICULITIS ON CT SCAN. Scripts Tramadol (Ultram) 50 Mg Tab 50 MG PO Q8H Y for PAIN, #12 TAB 0 Refills Prov: Allen Lujan MD 01/18/18 Disposition: 01 DISCHARGE HOME Condition: Stable Allen Lujan MD Jan 18, 2018 00:04
[2018-01-18 00:07] LABS: BACTERIA, URINE RARE /hpf; BILIRUBIN, URINE NEG (NEG); BLOOD, URINE TRACE (NEG); GLUCOSE,URINE NEG (NEG); KETONE, URINE NEG (NEG); NITRITE,URINE NEG (NEG); SQUAMOUS EPITHELIAL CELL URINE 1 /hpf (0-5); URINE COLOR YELLOW (YELLW/STRAW); URINE LEUKOCYTE ESTERASE SMALL (NEG)
[2018-01-18] MEDS ORDERED: DICYCLOMINE HCL 20 MG/2 ML VIAL IM ONE (00:15)
[2018-01-18] MEDS ORDERED: PROMETHAZINE INJ 25 MG/ML VIAL IM ONE (00:15)
--- NOTE | 2018-01-18 00:58 | RADRPT ---
EXAM DATE/TIME: 01/18/2018 00:25 [facility] COMPARISON: CT ABDOMEN & PELVIS W/O CONTRAST, November 09, 2017, 19:42. INDICATIONS : Bilateral lower quadrant pain. ORAL CONTRAST: No oral contrast ingested. RADIATION DOSE: 17.02 CTDIvol (mGy) MEDICAL HISTORY : Renal calculi. Ovarian cysts. SURGICAL HISTORY : Cholecystectomy. Appendectomy. section. ENCOUNTER: Initial ACUITY: 2 days PAIN SCALE: 7/10 LOCATION: Bilateral lower quadrant TECHNIQUE: Volumetric scanning of the abdomen and pelvis was performed. Using automated exposure control and ad justment of the mA and/or kV according to patient size, radiation dose was kept as low as reasonably achievable to obtain optimal diagnostic quality images. DICOM format image data is available electro nically for review and comparison. FINDINGS: LOWER LUNGS: The visualized lower lungs are clear. LIVER: Homogeneous density without lesion. There is no dilation of the biliary tree. Prior cholecystectomy. SPLEEN: Normal size without lesion. PANCREAS: Within normal limits. KIDNEYS: Normal in size and shape. There is no mass or hydronephrosis. Multiple bilateral nonobstructing gunner l calculi measuring between one and 3 mm. ADRENAL GLANDS: Within normal limits. VASCULAR: There is no aortic aneurysm. BOWEL/MESENTERY: The stomach, small bowel, and colon demonstrate no acute abnormality. There is no free intraperitone al air or fluid. ABDOMINAL WALL: Within normal limits. RETROPERITONEUM: There is no lymphadenopathy. BLADDER: No wall thickening or mass. REPRODUCTIVE: Within normal limits. IUD noted within the uterus. INGUINAL: There is no lymphadenopathy or hernia. MUSCULOSKELETAL: Within normal limits for patient age. CONCLUSION: 1. No acute abnormality. 2. IUD. 3. Bilateral nonobstructing renal calculi. 4. Prior cholecystectomy. Tyrone Lind Jr., MD on January 18, 2018 at 0:54 Board Certified Radiologist. This report was verified electronically.
[2018-01-18] MEDS ORDERED: TRAM50 PO (01:21)
[2018-01-18] MEDS ORDERED: KETOROLAC TROMETHAMINE 60 MG/2 ML (IM) VIAL IM ONE (01:30)
== END 2018-01-18 01:34 | disposition home or self-care (01) ==
LOC: NEPE 21:53
DX: R10.30 Lower abdominal pain, unspecified (principal); E07.9 Disorder of thyroid, unspecified; Z79.899 Other long term (current) drug therapy
CPT/HCPCS: 74176; 80307; 81001; 84703; 96372; 99284; J0500; J2550